=== PATIENT | female | born 1965 | race Caucasian/White ===

== ENCOUNTER 2018-10-29 22:28 | Emergency (ER) | payer OTHER, SELFPAY ==
[2018-10-29] MEDS ORDERED: NA CHLORIDE 0.9% 1,000 ML ONE (23:28)
[2018-10-29 23:29] LABS: Absolute Lymphocytes (CBC) 3.3 K/uL (0.7-4.9); Basophils % 0.2 % (0-1.3); Hematocrit 38.8 % (36.0-45.0); Lymphocytes % 22.1 % (15.3-44.8); MPV 8.6 fL (7.6-11.3); RBC Red Blood Cell Count 4.27 M/uL (3.86-4.86)
[2018-10-29 23:32] LABS: Protime INR 1.12
[2018-10-30 00:07] LABS: ALT/SGPT 16 U/L (12-78); AST/SGOT 9 U/L (15-37); Alkaline Phosphatase 66 U/L (45-117); BUN Blood Urea Nitrogen 19 mg/dL (7-18); Bicarbonate 26 mmol/L (21-32); Bilirubin Direct 0.2 mg/dL (0-0.2); Bilirubin Total 0.9 mg/dL (0.2-1.0); Glucose Level 143 mg/dL (74-106); Potassium 3.3 mmol/L (3.5-5.1); Protein, Total 7.6 g/dL (6.4-8.2); Sodium Level 141 mmol/L (136-145)
[2018-10-30 00:35] LABS: Urine Blood NEGATIVE (NEG); Urine Glucose NEGATIVE (NEG); Urine Protein 1+ (NEG); Urine Specific Gravity >1.030 (1.005-1.030)
[2018-10-30 00:59] LABS: Barbiturates NEGATIVE (NEGATIVE); Benzodiazepines NEGATIVE (NEGATIVE); Cocaine NEGATIVE (NEGATIVE); METHAMPHETAM NEGATIVE (NEGATIVE); Methadone NEGATIVE (NEGATIVE); Opiates POSITIVE (NEGATIVE); Phencyclidine NEGATIVE (NEGATIVE); THC Cannibis POSITIVE (NEGATIVE)
--- NOTE | 2018-10-30 01:31 | EDPHYS ---
Physician Documentation [facility] Name: Mirta Olmos Age: 53 yrs Sex: Female : 1965 Arrival Date: 10/29/2018 Time: 22:30 Bed 15 Private MD: ED Physician Kashmir Mosqueda HPI: 10/30 03:49 This 53 yrs old Female presents to ER via Wheelchair with complaints of kdr Numbness Of Arm - L, Passed Out Prior To Arrival. 03:50 The patient has experienced syncope, became unresponsive, collapsed, lost kdr consciousness. Onset: The symptoms/episode began/occurred acutely, suddenly, just prior to arrival. Duration: This was a single episode, that lasted an unknown period of time. Context: the episode(s) was witnessed, by a bystander, occurred [employer], occurred while the patient was standing, Just prior to the episode the patient experienced lightheadedness, tingling, weakness, States that she had been feeling poorly today and so she smoke some marijuana which may have been tainted with unknown substance. She has previously smoked marijuana without problem but immediately after smoking this time she became light headed and passed out hitting her head on the way down to the floor. Associated injury: Head/face: left side of the back of head and left occipital area, contusion. Associated signs and symptoms: The patient has no apparent associated signs or symptoms. Current symptoms: Currently, the patient is not experiencing any symptoms, the patient feels back to baseline. The patient has not experienced similar symptoms in the past. The patient has not recently seen a physician. Historical: - Allergies: 10/29 22:35 No Known Allergies; jb4 - Home Meds: 22:35 Soma Oral [Active]; Hydrocodone-Acetaminophen Oral [Active]; Fentanyl Patch Topical jb4 [Active]; Lisinopril Oral [Active]; gabapentin oral oral [Active]; - PMHx: 22:35 Hypertension; jb4 - PSHx: 22:35 ; jb4 - Immunization history:: Adult Immunizations up to date. - Social history:: Smoking status: Patient uses tobacco products, smokes one pack cigarettes per day. Patient/guardian denies using alcohol. - Ebola Screening: : No symptoms or risks identified at this time. ROS: 10/30 03:50 Constitutional: Negative for fever, chills, and weight loss, Eyes: Negative for injury, kdr pain, redness, and discharge, ENT: Negative for injury, pain, and discharge, Neck: Negative for injury, pain, and swelling, Cardiovascular: Negative for chest pain, palpitations, and edema, Respiratory: Negative for shortness of breath, cough, wheezing, and pleuritic chest pain, Abdomen/GI: Negative for abdominal pain, nausea, vomiting, diarrhea, and constipation, Back: Negative for injury and pain, : Negative for injury, bleeding, discharge, and swelling, MS/Extremity: Negative for injury and deformity, Skin: Negative for injury, rash, and discoloration, Psych: Negative for depression, anxiety, suicide ideation, homicidal ideation, and hallucinations, Allergy/Immunology: Negative for hives, rash, and allergies, Endocrine: Negative for neck swelling, polydipsia, polyuria, polyphagia, and marked weight changes, Hematologic/Lymphatic: Negative for swollen nodes, abnormal bleeding, and unusual bruising. Neuro: Positive for loss of consciousness, syncope, weakness, Negative for altered mental status, dizziness, gait disturbance, hearing loss, numbness, seizure activity, speech changes, tingling, tinnitus, tremor, visual changes. Exam: 03:50 Constitutional: This is a well developed, well nourished patient who is awake, alert, kdr and in no acute distress. Head/Face: Normocephalic, atraumatic. Eyes: Pupils equal round and reactive to light, extra-ocular motions intact. Lids and lashes normal. Conjunctiva and sclera are non-icteric and not injected. Cornea within normal limits. Periorbital areas with no swelling, redness, or edema. Neck: Trachea midline, no thyromegaly or masses palpated, and no cervical lymphadenopathy. Supple, full range of motion without nuchal rigidity, or vertebral point tenderness. No Meningismus. Chest/axilla: Normal chest wall appearance and motion. Nontender with no deformity. No lesions are appreciated. Cardiovascular: Regular rate and rhythm with a normal S1 and S2. No gallops, murmurs, or rubs. Normal PMI, no JVD. No pulse deficits. Respiratory: Lungs have equal breath sounds bilaterally, clear to auscultation and percussion. No rales, rhonchi or wheezes noted. No increased work of breathing, no retractions or nasal flaring. Abdomen/GI: Soft, non-tender, with normal bowel sounds. No distension or tympany. No guarding or rebound. No evidence of tenderness throughout. Back: No spinal tenderness. No costovertebral tenderness. Full range of motion. Skin: Warm, dry with normal turgor. Normal color with no rashes, no lesions, and no evidence of cellulitis. MS/ Extremity: Pulses equal, no cyanosis. Neurovascular intact. Full, normal range of motion. Neuro: Awake and alert, GCS 15, oriented to person, place, time, and situation. Cranial nerves II-XII grossly intact. Motor strength 5/5 in all extremities. Sensory grossly intact. Cerebellar exam normal. Normal gait. Psych: Awake, alert, with orientation to person, place and time. Behavior, mood, and affect are within normal limits. Vital Signs: 10/29 22:35 BP 90 / 67; Pulse 59; Resp 16; Temp 97.6; Pulse Ox 100% on R/A; Weight 111.58 kg (R); jb4 Height 6 ft. 0 in. (182.88 cm) (R); Pain 6/10; 23:00 BP 84 / 45; Pulse 51; Resp 16; Pulse Ox 100% on R/A; jb4 23:17 BP 90 / 49; Pulse 51; Resp 18; Pulse Ox 100% on R/A; jb4 23:30 BP 100 / 50; Pulse 52; Resp 16; Pulse Ox 100% on R/A; jb4 10/30 00:00 BP 90 / 65; Pulse 55; Resp 16; Pulse Ox 100% on R/A; jb4 00:45 BP 97 / 52; Pulse 61; Resp 16; Pulse Ox 100% on R/A; jb4 01:41 BP 99 / 57; Pulse 58; Resp 16; Pulse Ox 100% on R/A; jb4 02:05 BP 105 / 62; Pulse 61; Resp 16; Pulse Ox 100% on R/A; jb4 10/29 22:35 Body Mass Index 33.36 (111.58 kg, 182.88 cm) jb4 10/29 23:00 Provider [facility] of low b[facility] MDM: 10/30 01:30 Patient medically screened. kdr 03:50 Data reviewed: vital signs, nurses notes, lab test result(s), radiologic studies. kdr Counseling: I had a detailed discussion with the patient and/or guardian regarding: the historical points, exam findings, and any diagnostic results supporting the discharge/admit diagnosis, lab results, radiology results, the need for outpatient follow up. 10/29 22:47 Order name: Acetaminophen kdr 10/29 22:47 Order name: Basic Metabolic Panel kdr 10/29 22:47 Order name: CBC with Diff; Complete Time: [facility] 10/29 22:47 Order name: ETOH Level; Complete Time: [facility] 10/29 22:47 Order name: Hepatic Function; Complete Time: [facility] 10/29 22:47 Order name: PT-INR; Complete Time: [facility] 10/29 21:47 Order name: Ptt, Activated; Complete Time: [facility] 10/29 22:47 Order name: Salicylate; Complete Time: [facility] 10/29 22:47 Order name: Urine Drug Screen; Complete Time: [facility] 10/29 22:47 Order name: CT Head C Spine kdr 10/29 22:59 Order name: Acetaminophen Level; Complete Time: [facility] 10/29 22:59 Order name: Basic Metabolic Panel; Complete Time: [facility] 10/29 23:53 Order name: Urine Dipstick--Ancillary (enter results); Complete Time: [facility] 10/29 23:53 Order name: Urine --Ancillary (enter results); Complete Time: [facility] 10/29 22:47 Order name: EKG; Complete Time: 23:00 [facility] 10/29 22:47 Order name: EKG - Nurse/Tech; Complete Time: 22:55 [facility] 10/29 22:47 Order name: IV Saline Lock; Complete Time: 22:55 [facility] 10/29 22:47 Order name: Labs collected and sent; Complete Time: 22:55 [facility] 10/29 22:47 Order name: Urine Dipstick-Ancillary (obtain specimen); Complete Time: 23:43 kdr Administered Medications: 10/29 23:32 Drug: NS 0.9% 1000 ml Route: IV; Rate: 1 bolus; Site: right antecubital; jb4 10/30 01:30 Follow up: Response: No adverse reaction; Blood pressure is elevated; IV Status: jb4 Completed infusion; IV Intake: 1000ml Point of Care Testing: Blood Glucose: 10/29 22:35 Blood Glucose: 158 mg/dL; jb4 Ranges: Critical Glucose Levels:Adult <50 mg/dl or >400 mg/dl <40 mg/dl or >180 mg/dl Disposition: 10/30/18 01:30 Discharged to Home. Impression: Syncope and collapse, Superficial injury of head, Substance abuse. - Condition is Stable. - Discharge Instructions: Syncope, [id number], Head Injury, Adult, [id number]. - Medication Reconciliation Form, Thank You Letter form. - Follow up: Private Physician; When: 2 - 3 days; Reason: If symptoms return, Further diagnostic work-up, Recheck today's complaints, Continuance of care, Re-evaluation by your physician. - Problem is new. - Symptoms are resolved. Signatures: Dispatcher [employer] EDMS Kashmir Mosqueda MD MD kdr Hussein Norwood RN RN jb4 Corrections: (The following items were deleted from the chart) 10/30 02:08 01:30 10/30/2018 01:30 Discharged to Home. Impression: Syncope and collapse; jb4 Superficial injury of head; Substance abuse. Condition is Stable. Forms are Medication Reconciliation Form, Thank You Letter, Antibiotic Education, Prescription Opioid Use. Follow up: Private Physician; When: 2 - 3 days; Reason: If symptoms return, Further diagnostic work-up, Recheck today's complaints, Continuance of care, Re-evaluation by your physician. Problem is new. Symptoms are resolved. kdr
--- NOTE | 2018-10-30 01:31 | ER ---
Nurse's Notes [facility] Name: Mirta Olmos Age: 53 yrs Sex: Female : 1965 Arrival Date: 10/29/2018 Time: 22:30 Bed 15 Private MD: Diagnosis: Syncope and collapse;Superficial injury of head;Substance abuse Presentation: 10/29 22:35 Presenting complaint: Patient states: I was at work and noticed my left arm and leg jb4 were going numb, I passed out and hit my head on a sound mixer. 22:35 Transition of care: patient was not received from another setting of care. Onset of jb4 symptoms was October 29, 2018. Risk Assessment: Do you want to hurt yourself or someone else? Patient reports no desire to harm self or others. Initial Sepsis Screen: Does the patient meet any 2 criteria? No. Patient's initial sepsis screen is negative. Does the patient have a suspected source of infection? No. Patient's initial sepsis screen is negative. Care prior to arrival: None. 22:35 Method Of Arrival: Wheelchair jb4 22:35 Acuity: LESTER 2 jb4 Historical: - Allergies: 22:35 No Known Allergies; jb4 - Home Meds: 22:35 Soma Oral [Active]; Hydrocodone-Acetaminophen Oral [Active]; Fentanyl Patch Topical jb4 [Active]; Lisinopril Oral [Active]; gabapentin oral oral [Active]; - PMHx: 22:35 Hypertension; jb4 - PSHx: 22:35 ; jb4 - Immunization history:: Adult Immunizations up to date. - Social history:: Smoking status: Patient uses tobacco products, smokes one pack cigarettes per day. Patient/guardian denies using alcohol. - Ebola Screening: : No symptoms or risks identified at this time. Screenin:35 Abuse screen: Denies threats or abuse. Nutritional screening: No deficits noted. jb4 Tuberculosis screening: No symptoms or risk factors identified. Fall Risk Fall in past 12 months (25 points). IV access (20 points). Ambulatory Aid- None/Bed Rest/Nurse Assist (0 pts). Gait- Normal/Bed Rest/Wheelchair (0 pts) Total Christie Fall Scale indicates High Risk Score (45 or more points). Fall prevention measures have been instituted. Side Rails Up X 2 Placed Close to Nursing Station Frequent Obs/Assessments Occuring Family Present and informed to notify staff if the need to leave the bedside As available patient and family educated on Fall Prevention Program and Strategies. Assessment: 22:35 General: Appears distressed, uncomfortable, Behavior is anxious. Pain: Complains of jb4 pain in scalp Pain does not radiate. Pain currently is 6 out of 10 on a pain scale. Neuro: Level of Consciousness is awake, alert, obeys commands, Oriented to person, place, time, situation, [place] Supervisor are equal bilaterally Moves all extremities. Gait is steady, Speech is slurred, Facial symmetry appears normal, Pupils are PERRLA, Intact. Cardiovascular: Patient's skin is warm and dry. Respiratory: Reports shortness of breath Airway is patent Respiratory effort is even, unlabored, Respiratory pattern is regular, symmetrical. GI: No deficits noted. No signs and/or symptoms were reported involving the gastrointestinal system. : No deficits noted. No signs and/or symptoms were reported regarding the genitourinary system. EENT: No deficits noted. No signs and/or symptoms were reported regarding the EENT system. Derm: Skin is intact, Skin is pink, warm \T\ dry. Musculoskeletal: Circulation, motion, and sensation intact. Range of motion: intact in all extremities. 22:35 Reassessment: Provider notified of low b/p. jb4 23:30 Reassessment: Patient appears in no apparent distress at this time. Patient and/or jb4 family updated on plan of care and expected duration. Pain level reassessed. Patient is alert, oriented x 3, equal unlabored respirations, skin warm/dry/pink. 10/30 00:15 Reassessment: Patient appears in no apparent distress at this time. Patient and/or jb4 family updated on plan of care and expected duration. Pain level reassessed. Patient is alert, oriented x 3, equal unlabored respirations, skin warm/dry/pink. Pt to CT. 00:51 Reassessment: Patient appears in no apparent distress at this time. Patient and/or jb4 family updated on plan of care and expected duration. Pain level reassessed. Patient is alert, oriented x 3, equal unlabored respirations, skin warm/dry/pink. PT is back from CT. 01:41 Reassessment: Patient appears in no apparent distress at this time. Patient and/or jb4 family updated on plan of care and expected duration. Pain level reassessed. Patient is alert, oriented x 3, equal unlabored respirations, skin warm/dry/pink. 02:05 Reassessment: Patient appears in no apparent distress at this time. Patient and/or jb4 family updated on plan of care and expected duration. Pain level reassessed. Patient is alert, oriented x 3, equal unlabored respirations, skin warm/dry/pink. Pt and verbalized understanding of d/c and follow up instructions. Vital Signs: 10/29 22:35 BP 90 / 67; Pulse 59; Resp 16; Temp 97.6; Pulse Ox 100% on R/A; Weight 111.58 kg (R); jb4 Height 6 ft. 0 in. (182.88 cm) (R); Pain 6/10; 23:00 BP 84 / 45; Pulse 51; Resp 16; Pulse Ox 100% on R/A; jb4 23:17 BP 90 / 49; Pulse 51; Resp 18; Pulse Ox 100% on R/A; jb4 23:30 BP 100 / 50; Pulse 52; Resp 16; Pulse Ox 100% on R/A; jb4 10/30 00:00 BP 90 / 65; Pulse 55; Resp 16; Pulse Ox 100% on R/A; jb4 00:45 BP 97 / 52; Pulse 61; Resp 16; Pulse Ox 100% on R/A; jb4 01:41 BP 99 / 57; Pulse 58; Resp 16; Pulse Ox 100% on R/A; jb4 02:05 BP 105 / 62; Pulse 61; Resp 16; Pulse Ox 100% on R/A; jb4 10/29 22:35 Body Mass Index 33.36 (111.58 kg, 182.88 cm) jb4 10/29 23:00 Provider notified of low b/p jb4 ED Course: 22:30 Patient arrived in ED. ds1 22:35 Arm band placed on. EKG completed in triage. Results shown to . jb4 22:43 Hussein Norwood, RN is Primary Nurse. jb4 22:46 Kashmir Mosqueda MD is Attending Physician. kdr 22:50 Initial lab(s) drawn, by me, sent to lab. Inserted saline lock: 20 gauge in right jb4 antecubital area, using aseptic technique. Blood collected. 22:55 Triage completed. jb4 10/30 00:45 Patient has correct armband on for positive identification. Bed in low position. Call jb4 light in reach. Side rails up X 1. Pulse ox on. NIBP on. 00:52 CT Head C Spine In Process Unspecified. EDMS 02:05 No provider procedures requiring assistance completed. IV discontinued, intact, jb4 bleeding controlled, No redness/swelling at site. Pressure dressing applied. Administered Medications: 10/29 23:32 Drug: NS 0.9% 1000 ml Route: IV; Rate: 1 bolus; Site: right antecubital; jb4 10/30 01:30 Follow up: Response: No adverse reaction; Blood pressure is elevated; IV Status: jb4 Completed infusion; IV Intake: 1000ml Point of Care Testing: Blood Glucose: 10/29 22:35 Blood Glucose: 158 mg/dL; jb4 Ranges: Intake: 10/30 01:30 IV: 1000ml; Total: 1000ml. jb4 Outcome: 01:30 Discharge ordered by . kdr 02:05 Discharged to home via wheelchair, with family. jb4 02:05 Condition: stable 02:05 Discharge instructions given to patient, family, Instructed on discharge instructions, follow up and referral plans. Demonstrated understanding of instructions, follow-up care. 02:08 Patient left the ED. jb4 Signatures: Dispatcher [employer] EDKashmir Stewart MD MD kdr [place], Demi ds1 Hussein Norwood, RN RN jb4
--- NOTE | 2018-10-30 07:13 | EKG ---
Test Date: 2018-10-29 Test Time: 22:52:26 Rn Surgery: AER MEASUREMENT RESULTS: Intervals: Rate: 55 ND: 152 QRSD: 98 QT: 440 QTc: 420 [place]: P: 37 ND: 152 QRS: 74 T: 50 INTERPRETIVE STATEMENTS: Sinus bradycardia Incomplete right bundle branch block Borderline ECG No previous ECG available for comparison Electronically Signed On 10-30-18 07:13:10 CDT by Juan Hollis
--- NOTE | 2018-10-30 10:01 | RAD REPORT ---
EXAM DESCRIPTION: CT - Head C Spine Mpr Wo Con - 10/30/2018 2:04 am CLINICAL HISTORY: 53 years Female fall, head injury; Pain TECHNIQUE: Contiguous axial CT images obtained through the brain and cervical spine without IV contr ast. Coronal and sagittal reformatted images also provided. This CT exam was performed according to our departmental dose-optimization program, which includes on e or more of the following dose reduction techniques: automated exposure control, adjustment of the m A and/or kV according to patient size, and/or use of iterative reconstruction technique. COMPARISON: No prior exams provided for comparison. FINDINGS: There is no acute skull fracture, intracranial hemorrhage, extraaxial collection, or acute transcortical infarction. The ventricles are normal in size and contour without mass effect or midli ne shift. The visualized paranasal sinuses, tympanomastoid cavities, and orbits are normal. There is no acute cervical fracture or spondylolisthesis. There is straightening of the normal cervic al lordosis with mild to moderate multilevel degenerative disc disease and uncovertebral arthrosis. N o aggressive osseous lesion. No prevertebral or paraspinal soft tissue swelling. The lung apices are clear. Degenerative changes result in the following: At C3-C4, there is mild bilateral neural foraminal stenosis, right greater than left. At C5-C6, there is flattening of the ventral aspect of the thecal sac with mild left neural foraminal stenosis. At C6-C7, there is moderate narrowing of the left lateral recess with severe left neural foraminal st enosis. At C7-T1, there is minimal left neural foraminal narrowing. IMPRESSION: No acute intracranial or cervical spine injury. Chronic degenerative changes in the cervical spine as described. Electronically signed by: Indigo Morales MD 10/30/2018 1:00 AM CDT Due to temporary technical issues with the PACS/Fluency reporting system, reports are being signed by the in house radiologist as a courtesy to ensure prompt reporting. The interpreting radiologist is f ully responsible for the content of the report.
== END 2018-10-30 02:08 | disposition home or self-care (01) ==
LOC: ER 22:28
DX: R55 Syncope and collapse (principal); S00.90XA Unspecified superficial injury of unspecified part of head, initial encounter; I10 Essential (primary) hypertension; F12.10 Cannabis abuse, uncomplicated; X58.XXXA Exposure to other specified factors, initial encounter; Y93.9 Activity, unspecified; Y92.9 Unspecified place or not applicable
CPT/HCPCS: 36415; 70450; 72125; 80048; 80076; 80307; 80320; 80329; 81003; 81025; 82962; 85025; 85610; 85730; 93005; 96360; 96361; 99284; J7030

== ENCOUNTER 2019-12-29 12:58 | Emergency (ER) | payer OTHER ==
--- OUTSIDE RECORDS SUMMARY | 2019-12-29 13:00 | XMS REPORT | Continuity of Care Document ---
:[address] [facility] t Address [address] [place] [address] Care Team Providers Name Role Phone Doctor Unassigned, Name Attending Clinician Unavailable Jessika Mendoza Attending Clinician Problems This patient has no known problems. Allergies, Adverse Reactions, Alerts This patient has no known allergies or adverse reactions. Medications This patient has no known medications. Procedures This patient has no known procedures. Encounters Start End Encounter Admission Attending Care Care Encounter Source Date/Time Date/Time Type Type Clinicians Facility Department ID 2019-07-20 2019-07-20 Orders Doctor ALFARO [id number] 00:00:00 00:00:00 Only UnassignedROSALIND [id number] [place] [facility] [id number] 2019-06-11 2019-06-11 [facility] ESPINOZA Castillo [id number] 10:21:43 10:36:43 ne Visit [facility] [id number] Surgical [id number] Specialti [id number] [address] 2019-05-11 2019-05-11 Orders Doctor ALFARO [id number] 00:00:00 00:00:00 Only UnassignedROSALIND [id number] [place] [facility] [id number] 2019-05-10 2019-05-10 Office ESPINOZA Castillo [id number] 14:05:26 14:20:26 Visit [facility] [id number] Surgical [id number] Specialti [id number] [address] Results This patient has no known results.
--- NOTE | 2019-12-29 15:09 | RAD REPORT ---
EXAM DESCRIPTION: RAD - Lumbar Spine 3 Views - 12/29/2019 2:59 pm CLINICAL HISTORY: Back pain FINDINGS: Bones are osteoporotic. No fracture or dislocation seen Marked spondylosis involves the lumbar spine
--- NOTE | 2019-12-29 15:10 | RAD REPORT ---
EXAM DESCRIPTION: RAD - Knee Left 3 View - 12/29/2019 2:59 pm CLINICAL HISTORY: Left knee pain status post injury FINDINGS: Bones are osteoporotic. No acute fracture or dislocation noted
--- NOTE | 2019-12-29 15:37 | EDPHYS ---
Physician Documentation [facility] Name: Mirta Olmos Age: 54 yrs Sex: Female : 1965 Arrival Date: 12/29/2019 Time: 13:01 Bed 20 Private MD: ED Physician Keny Cardenas HPI: 12/28 14:20 This 54 yrs old Female presents to ER via Ambulatory with complaints of Fall jmm Injury. 14:20 Details of fall: The patient fell from an upright position, while walking. Onset: The jmm symptoms/episode began/occurred acutely, yesterday. Associated injuries: The patient sustained injury to the low back. This is a 54 year old female with a history of htn that presents to the ED with complaints of low back pain, left knee pain after a fall while walking. Denies head injury. Patient states she slipped on water. . 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 - Social history:: Smoking status: Patient reports the use of cigarette tobacco products, smokes one pack cigarettes per day. ROS: 14:20 Constitutional: Negative for fever, chills, and weight loss, Cardiovascular: Negative jmm for chest pain, palpitations, and edema, Respiratory: Negative for shortness of breath, cough, wheezing, and pleuritic chest pain. 14:20 Back: Positive for pain at rest, pain with movement. 14:20 MS/extremity: Positive for injury or acute deformity, pain. 14:20 All other systems are negative. Exam: 14:20 Constitutional: This is a well developed, well nourished patient who is awake, alert, jmm and in no acute distress. Head/Face: atraumatic. Eyes: EOMI, no conjunctival erythema appreciated ENT: Moist Mucus Membranes Neck: Trachea midline, Supple Chest/axilla: Normal chest wall appearance and motion. Cardiovascular: Regular rate and rhythm. No edema appreciated Respiratory: Normal respirations, no respiratory distress appreciated Abdomen/GI: Non distended, soft 14:20 Back: pain, that is moderate, of the left low back and right low back, ROM is painful, vertebral tenderness, is not appreciated. 14:20 Musculoskeletal/extremity: ROM: intact in all extremities, FROM noted to the left knee, no deformity appreciated, full dorsalis pulse, NVI. 14:20 Skin: Appearance: Color: normal in color. 14:20 Neuro: Orientation: is normal, Mentation: is normal, Memory: is normal. 14:20 Psych: Behavior/mood is pleasant, cooperative. Vital Signs: 13:26 BP 121 / 69; Pulse 74; Resp 16 S; Temp 97(TE); Pulse Ox 98% on R/A; Weight 113.4 kg ca1 (R); Height 6 ft. 0 in. (182.88 cm) (R); Pain 8/10; 15:30 BP 127 / 75; Pulse 75; Resp 16; Temp 97; Pulse Ox 98% ; bp 13:26 Body Mass Index 33.91 (113.40 kg, 182.88 cm) ca1 MDM: 14:08 Patient medically screened. emiliana 15:34 Data reviewed: vital signs, nurses notes. Counseling: I had a detailed discussion with gautam the patient and/or guardian regarding: the historical points, exam findings, and any diagnostic results supporting the discharge/admit diagnosis, radiology results, the need for outpatient follow up, to return to the emergency department if symptoms worsen or persist or if there are any questions or concerns that arise at home. ED course: Patient is alert and non toxic in appearance in the ED. Xray negative. Patient is advised to follow up with pcp and otherwise given strict return precautions. patient understood and agrees with the plan of care. . 12/28 14:19 Order name: Lumbar Spine (3 Views) XRAY; Complete Time: 15:34 [facility] 12/28 14:19 Order name: Knee Left 3 View XRAY; Complete Time: 15:34 [facility] 12/28 15:34 Order name: Rupert wrap-joint; Complete Time: 15:58 [facility] Administered Medications: 15:55 Drug: Ketorolac 30 mg Route: IM; Site: right deltoid; bp 16:04 Follow up: Response: No adverse reaction bp Disposition: 18:19 Co-signature as Attending Physician, Keny Cardenas MD I agree with the assessment and emiliana plan of care. Disposition: 12/29/19 15:36 Discharged to Home. Impression: Contusion of left knee, Strain of muscle, fascia and tendon of lower back. - Condition is Stable. - Discharge Instructions: Back Pain, Adult. - Prescriptions for Medrol (Dao) 4 mg Oral Tablets, Dose Pack - take 1 tablet by ORAL route as directed - follow package instructions; 1 packet. orphenadrine citrate 100 mg Oral Tablet Sustained Release - take 1 tablet by ORAL route 2 times per day As needed; 20 tablet. - Medication Reconciliation Form, Thank You Letter, Antibiotic Education, Prescription Opioid Use form. - Follow up: Private Physician; When: 2 - 3 days; Reason: Recheck today's complaints, Continuance of care, Re-evaluation by your physician. Signatures: Dispatcher [employer] EDKeny Koch MD MD cha Mickail, Joel, PA PA jmm Peltier, Brian, RN RN Linnea Giron RN RN ca1 Corrections: (The following items were deleted from the chart) 16:23 15:36 12/29/2019 15:36 Discharged to Home. Impression: Contusion of left knee; Strain bp of muscle, fascia and tendon of lower back. Condition is Stable. Forms are Medication Reconciliation Form, Thank You Letter, Antibiotic Education, Prescription Opioid Use. Follow up: Private Physician; When: 2 - 3 days; Reason: Recheck today's complaints, Continuance of care, Re-evaluation by your physician. gautam
--- NOTE | 2019-12-29 15:37 | ER ---
Nurse's Notes [facility] Name: Mirta Olmos Age: 54 yrs Sex: Female : 1965 Arrival Date: 12/29/2019 Time: 13:01 Bed 20 Private MD: Diagnosis: Contusion of left knee;Strain of muscle, fascia and tendon of lower back Presentation: 12/28 13:26 Chief complaint: Patient states: Slipped and fell last night. Pain on Lower back and L ca1 knee. Denies LOC. Denies hitting head. Coronavirus screen: Client denies travel out of the [place] in the last 14 days. At this time, the client does not indicate any symptoms associated with coronavirus-19. The client denies any previous COVID testing. Ebola Screen: Patient negative for fever greater than or equal to 101.5 degrees Fahrenheit, and additional compatible Ebola Virus Disease symptoms Patient denies exposure to infectious person. Patient denies travel to an Ebola-affected area in the 21 days before illness onset. No symptoms or risks identified at this time. Initial Sepsis Screen: Does the patient meet any 2 criteria? No. Patient's initial sepsis screen is negative. Does the patient have a suspected source of infection? No. Patient's initial sepsis screen is negative. Risk Assessment: Do you want to hurt yourself or someone else? Patient reports no desire to harm self or others. Onset of symptoms was December 29, 2019. 13:26 Method Of Arrival: Ambulatory ca1 13:26 Acuity: LESTER 4 ca1 Triage Assessment: 13:30 General: Appears in no apparent distress. uncomfortable, obese, Behavior is bp cooperative, appropriate for age, anxious. Pain: Complains of pain in left knee and left low back. EENT: No deficits noted. Neuro: No deficits noted. Cardiovascular: No deficits noted. Respiratory: No deficits noted. GI: No signs and/or symptoms were reported involving the gastrointestinal system. : No signs and/or symptoms were reported regarding the genitourinary system. Derm: No deficits noted. Musculoskeletal: Reports pain in left knee and left low back. [employer]: 13:28 LMP N/A - Post-menopause ca1 Historical: - Allergies: 13:28 No Known Allergies; ca1 - Home Meds: 13:28 lisinopril Oral [Active]; gabapentin Oral [Active]; Methadone Oral [Active]; ca1 - PMHx: 13:28 Hypertension; ca1 - PSHx: 13:28 ; ca1 - Immunization history:: Adult Immunizations up to date. - Social history:: Smoking status: Patient reports the use of cigarette tobacco products, smokes one pack cigarettes per day. Screenin:30 Abuse screen: Denies threats or abuse. Denies injuries from another. Nutritional bp screening: No deficits noted. Tuberculosis screening: No symptoms or risk factors identified. Fall Risk None identified. Assessment: 13:30 General: SEE TRIAGE NOTE. bp 14:30 Reassessment: PT TO XRAY. bp 16:02 Reassessment: PT D/C HOME AMBULATORY, DX WITH KNEE SPRAIN. bp Vital Signs: 13:26 BP 121 / 69; Pulse 74; Resp 16 S; Temp 97(TE); Pulse Ox 98% on R/A; Weight 113.4 kg ca1 (R); Height 6 ft. 0 in. (182.88 cm) (R); Pain 8/10; 15:30 BP 127 / 75; Pulse 75; Resp 16; Temp 97; Pulse Ox 98% ; bp 13:26 Body Mass Index 33.91 (113.40 kg, 182.88 cm) ca1 ED Course: 13:01 Patient arrived in ED. ag5 13:27 Triage completed. ca1 13:28 Arm band placed on right wrist. ca1 13:30 Patient has correct armband on for positive identification. Bed in low position. Call bp light in reach. Side rails up X2. 14:07 Dominik Laura PA is PHCP. [facility] 14:07 Keny Cardenas MD is Attending Physician. [facility] 14:08 Rosalino Sinclair, JENELLE is Primary Nurse. bp 14:59 Lumbar Spine (3 Views) XRAY In Process Unspecified. EDMS 14:59 Knee Left 3 View XRAY In Process Unspecified. EDMS 15:58 Rupert wrap to left knee. 5 16:01 No provider procedures requiring assistance completed. Patient did not have IV access bp during this emergency room visit. Administered Medications: 15:55 Drug: Ketorolac 30 mg Route: IM; Site: right deltoid; bp 16:04 Follow up: Response: No adverse reaction bp Outcome: 15:30 Discharged to home ambulatory. bp 15:30 Condition: stable 15:30 Discharge instructions given to patient, Instructed on discharge instructions, follow up and referral plans. medication usage, Demonstrated understanding of instructions, follow-up care, medications, Prescriptions given X 2. 15:36 Discharge ordered by . gautam 16:23 Patient left the ED. bp Signatures: Dispatcher [employer] EDMS Dominik Laura PA PA jmm Martinez, Maria 5 Rosalino Sinclair RN RN bp Linnea Larkin RN RN [facility] Dianne Maldonado 5 Corrections: (The following items were deleted from the chart) 14:40 14:39 Abuse screen: Denies threats or abuse. Denies injuries from another. bp bp 14:40 14:39 Nutritional screening: No deficits noted. bp bp 14:40 14:39 Tuberculosis screening: No symptoms or risk factors identified. bp bp 14:40 14:39 Fall Risk None identified. bp bp
[2019-12-29] MEDS ORDERED: KETOROLAC 30 MG/ML INJ ONE (16:08)
[2019-12-29 16:35] VITALS: TEMP 97; O2SAT 98
[2019-12-29 16:36] VITALS: BP 127/75
== END 2019-12-29 16:23 | disposition home or self-care (01) ==
LOC: ER 12:58
DX: S39.012A Strain of muscle, fascia and tendon of lower back, initial encounter (principal); S80.02XA Contusion of left knee, initial encounter; W01.0XXA Fall on same level from slipping, tripping and stumbling without subsequent striking against object, initial encounter; Y93.01 Activity, walking, marching and hiking; Y92.9 Unspecified place or not applicable; I10 Essential (primary) hypertension; F17.210 Nicotine dependence, cigarettes, uncomplicated
CPT/HCPCS: 72100; 96372; 99284

== ENCOUNTER 2020-04-06 10:35 | Observation (INO) | payer OTHER ==
--- OUTSIDE RECORDS SUMMARY | 2020-04-06 10:51 | XMS REPORT | Continuity of Care Document ---
:1965 Author Organization [facility] t Address [address] [place] [address] Care Team Providers Name Role Phone Doctor [...] ID 2019-07-20 2019-07-20 Orders Doctor ALFARO [id number] 00:00:00 00:00:00 Only UnassignedROSALIND [id number] [place] [facility] [id number] 2019-06-11 2019-06-11 Telemed[facility] ESPINOZA Castillo [id number] 10:21:43 10:36:43 ne Visit [facility] [id number] Surgical [id number] Specialti [phone] [address] 2019-05-11 2019-05-11 Orders Doctor ALFARO [id number] 00:00:00 00:00:00 Only UnassignedROSALIND [id number] [place] [facility] [id number] 2019-05-10 2019-05-10 Office ESPINOZA Castillo [id number] 14:05:26 14:20:26 Visit [facility] [id number] Surgical [id number] Specialti [phone] [address] Results This patient has no known results.
[2020-04-06 11:07] LABS: Absolute Lymphocytes (CBC) 0.8 K/uL (0.7-4.9); Basophils % 0.2 % (0-1.3); Hematocrit 32.6 % (36.0-45.0); Lymphocytes % 7.1 % (15.3-44.8); MPV 7.8 fL (7.6-11.3); RBC Red Blood Cell Count 3.86 M/uL (3.86-4.86)
[2020-04-06 11:25] LABS: Barbiturates NEGATIVE (NEGATIVE); Benzodiazepines POSITIVE (NEGATIVE); Cocaine NEGATIVE (NEGATIVE); METHAMPHETAM NEGATIVE (NEGATIVE); Methadone POSITIVE (NEGATIVE); Opiates NEGATIVE (NEGATIVE); Phencyclidine NEGATIVE (NEGATIVE); THC Cannibis POSITIVE (NEGATIVE)
[2020-04-06] MEDS ORDERED: NA CHLORIDE 0.9% 1,000 ML ONE (12:08)
[2020-04-06] MEDS ORDERED: ONDANSETRON 4 MG/2 ML VIAL ONE (12:08)
[2020-04-06] MEDS ORDERED: NALOXONE HCL 2 MG/2 ML VIAL ONE (12:20)
[2020-04-06 12:55] LABS: Arterial Blood Carboxyhemoglob 3.2 % (0-1.5); Blood Gas Oxyhemoglobin 85.9 % (94-97); Blood O2 Saturation 89.4 % (92-98.5)
--- NOTE | 2020-04-06 13:11 | RAD REPORT ---
EXAM DESCRIPTION: RAD - Chest Single View - 04/06/2020 12:58 pm CLINICAL HISTORY: SOB Chest pain. COMPARISON: No comparisons FINDINGS: Portable technique limits examination quality. Moderate right-sided pulmonary opacification/ infiltrate is seen most compatible with pneumonia. The heart is normal in size. No displaced fractures.
--- NOTE | 2020-04-06 13:32 | RAD REPORT ---
EXAM DESCRIPTION: CT - Head Brain Wo Cont - 04/06/2020 1:09 pm CLINICAL HISTORY: MENTAL STATUS CHANGE Headache, drowsiness COMPARISON: No comparisons TECHNIQUE: All CT scans are performed using dose optimization technique as appropriate and may inclu de automated exposure control or mA/KV adjustment according to patient size. FINDINGS: No intracranial hemorrhage, hydrocephalus or extra-axial fluid collection.No areas of brai n edema or evidence of midline shift. The paranasal sinuses and mastoids are clear. The calvarium is intact. IMPRESSION: No acute intracranial abnormality.
[2020-04-06 13:45] LABS: White Blood Cell Scan 0 (OK)
[2020-04-06 13:47] LABS: Blood Morphology Comment NOT SEEN (NOT SEEN); Platelet Estimate ADEQ
[2020-04-06 14:44] LABS: Troponin I 0.03 ng/mL (0.0-0.045)
--- NOTE | 2020-04-06 15:22 | ER ---
Nurse's Notes [facility] Name: Mirta Olmos Age: 55 yrs Sex: Female : 1965 Arrival Date: 04/06/2020 Time: 10:38 Bed 19 Private MD: Diagnosis: Pneumonia due to other specified bacteria;Hypoxemia Presentation: 04/06 10:53 Chief complaint: EMS states: pt was found by her this morning, appears to have iw overdosed on xanax, pt admits to taking xanax , has hx of fentanyl use but denies using any last night, pt appears to ave vomited, EMS reports pt was minimally responsive, was 75% on RA on arrival , placed on 4 L NC, up to 90%, pt still very drowsy but awakens to tactile stimuli, pt does not remember when she took the xanax, pt and were supposed to go to methadone clinic this morning. Coronavirus screen: At this time, the client does not indicate any symptoms associated with coronavirus-19. Ebola Screen: Patient negative for fever greater than or equal to 101.5 degrees Fahrenheit, and additional compatible Ebola Virus Disease symptoms Patient denies exposure to infectious person. Patient denies travel to an Ebola-affected area in the 21 days before illness onset. No symptoms or risks identified at this time. Onset of symptoms was April 06, 2020. 10:53 Method Of Arrival: EMS: [facility] iw 10:53 Acuity: LESTER 2 iw 10:54 Initial Sepsis Screen: Does the patient meet any 2 criteria? No. Patient's initial iw sepsis screen is negative. Does the patient have a suspected source of infection? No. Patient's initial sepsis screen is negative. Risk Assessment: Do you want to hurt yourself or someone else? Patient reports no desire to harm self or others. Historical: - Allergies: 11:43 No Known Allergies; iw - Home Meds: 11:43 lisinopril Oral once daily [Active]; iw - PMHx: 11:43 Hypertension; iw - PSHx: 11:43 ; iw Screenin:56 Abuse screen: Denies threats or abuse. Denies injuries from another. Nutritional zb screening: No deficits noted. Tuberculosis screening: No symptoms or risk factors identified. Fall Risk None identified. Assessment: 12:10 Pain: Unable to use pain scale. sr5 12:10 General: Appears uncomfortable, obese, unkempt, Behavior is drowsy. zb 12:10 Neuro: Level of Consciousness is lethargic, Oriented to none Speech is slurred, Pupils zb are sluggish, dilated. Cardiovascular: Heart tones S1 S2 present Capillary refill is > 3 seconds in bilateral fingers Patient's skin is warm and dry. Respiratory: Airway is patent Respiratory effort is labored, Respiratory pattern is snoring irregular Breath sounds with rales bilaterally. GI: Abdomen is round obese. : No signs and/or symptoms were reported regarding the genitourinary system. EENT: No signs and/or symptoms were reported regarding the EENT system. Derm: Skin is flushed. Musculoskeletal: Capillary refill < 3 seconds, Range of motion: intact in all extremities. 12:20 Reassessment: notified ECP of patient condition, notified respiratory. stating at [address] on non-rebreather. 12:30 Reassessment: Reassessment: patient appears more awake, able to open eyes and respond. zb 13:00 Reassessment: Patient appears in no apparent distress at this time. pt remains on zb non-rebreather. eye closed responses to touch. words remained slurred. 14:00 Reassessment: pt remains resting at bedside. responses to touch. still drowsy. zb 16:08 Reassessment: pt standing at bedside , states she needs to use the bathroom, pt iw assisted to bathroom, linens changed, placed back on monitor and O2. 18:59 Reassessment: spoke to patient updated on care. zb 19:42 Reassessment: patient more alert, turned on tv and provided water. patient repositioned zb in bed. 19:51 Reassessment: respiratory at bedside. zb Vital Signs: 11:42 BP 126 / 73; Pulse 89; Resp 16; Temp 98.7; Pulse Ox 98% on 4 lpm NC; iw 12:00 BP 122 / 72; Pulse 92; Resp 22; Pulse Ox 90% 4 lpm ; zb 12:30 BP 126 / 73; Pulse 91; Resp 20; Pulse Ox 98% on 15% Non-rebreather mask; zb 14:46 BP 116 / 66; Pulse 90; Resp 18; Pulse Ox 98% on 13% Non-rebreather mask; zb 15:30 BP 122 / 66; Pulse 91; Resp 20; Pulse Ox 100% on 13% Non-rebreather mask; zb 16:09 Weight 108.86 kg; zb 16:12 BP 109 / 90; Pulse 91; Resp 18; Pulse Ox 91% on 5 lpm NC; zb 17:00 BP 90 / 53; Pulse 91; Resp 22; Temp 99.8; Pulse Ox 92% 4 lpm ; zb 18:00 BP 90 / 57; Pulse 96; Resp 22; Pulse Ox 94% on 2 lpm NC; zb 19:00 BP 116 / 67; Pulse 98; Resp 20; Pulse Ox 93% on 2 lpm NC; zb ED Course: 10:38 Patient arrived in ED. em1 10:44 Eliza Garcia, RN is Primary Nurse. iw 10:59 Triage completed. iw 11:01 Keny Kennedy PA is PHCP. cp 11:02 Kashmir Mosqueda MD is Attending Physician. cp 11:43 Maintain EMS IV. Dressing intact. Good blood return noted. Site clean \T\ dry. Gauge \T\ iw site: 22 L hand. 12:45 Inserted saline lock: 20 gauge in left antecubital area, using aseptic technique. iw 12:58 XRAY Chest (1 view) In Process Unspecified. EDMS 13:07 CT Head Brain wo Cont In Process Unspecified. EDMS 13:57 Arm band placed on right wrist. zb 13:57 Patient has correct armband on for positive identification. zb 15:18 Brian Holman MD is Hospitalizing Provider. cp 04/07 06:40 Primary Nurse role handed off by Eliza Garcia RN eb 07:39 Sherrell Ramos, RN is Primary Nurse. ss 12:04 Primary Nurse role handed off by Sherrell Ramos, JENELLE vg1 12:04 Lorna Guerra, RN is Primary Nurse. vg1 Administered Medications: 04/06 12:03 Drug: Zofran (Ondansetron) 4 mg Route: IVP; Site: left hand; zb 12:04 Drug: NS 0.9% 1000 ml Route: IV; Rate: 1 bolus; Site: left hand; zb 12:11 Not Given (Physician Discretion): NARcan 2 mg IVP once zb 12:11 Drug: NARcan 1 mg Route: IVP; Site: left hand; zb 13:34 Not Given (Physician Discretion): LevaQUIN 750 mg 150 ml IVPB once over 90 mins cp 15:20 Drug: Cefepime 2 grams Route: IVPB; Rate: 200 ml/hr; Infused Over: 30 mins; Site: left zb antecubital; 16:35 Follow up: Response: No adverse reaction; IV Intake: 100ml zb 16:43 Drug: Clindamycin 900 mg Route: IVPB; Infused Over: 30 mins; Site: left hand; zb 17:15 Drug: NS 0.9% (30 ml/kg) 30 ml/kg {Note: discussed limiting to two bolus w/ provider. zb .} Route: IV; Rate: bolus; Site: left hand; 18:26 Drug: Zithromax 500 mg Route: IVPB; Infused Over: 1 hrs; Site: left hand; zb 04/07 01:23 Drug: Tylenol 1000 mg Route: PO; zb 09:38 Follow up: Response: No adverse reaction em Intake: 04/06 16:35 IV: 100ml; Total: 100ml. zb Outcome: 15:20 Decision to Hospitalize by Provider. cp 04/07 13:29 Patient left the ED. iw Signatures: Dispatcher [employer] Tang Gómez RN Eliza Garcia RN RN iw Martinez, Eric em1 Sherrell Ramos RN RN ss Page, Corey, PA PA cp Resecker, Sam RN RN sr5 Marilin Purcell Victoria RN RN cecy1 Jo Hathc RN RN zb Corrections: (The following items were deleted from the chart) 04/06 13:56 12:10 General: Appears uncomfortable, obese, unkempt, Behavior is drowsy, sr5 zb 16:43 15:40 Clindamycin 900 mg IVPB in left hand over 30 mins zb zb 16:43 16:35 Response: No adverse reaction; IV Status: Completed infusion; IV Intake: 100ml zb zb
--- NOTE | 2020-04-06 15:22 | EDPHYS ---
Physician Documentation [facility] Name: Mirta Olmos Age: 55 yrs Sex: Female : 1965 Arrival Date: 04/06/2020 Time: 10:38 Bed 19 Private MD: ED Physician Kashmir Mosqueda HPI: 04/06 10:50 This 55 yrs old Female presents to ER via EMS with complaints of Overdose. cp 10:50 The patient presents to the emergency department with a possible overdose, on Xanax. cp Context: Time: the patient's OD/poisoning occurred at an unknown time, and was witnessed no one, Psychiatric history: it is unknown whether or not the patient has an antecedent psychiatric history. Associated signs and symptoms: Pertinent positives: decreased level of consciousness, nausea, Pertinent negatives: auditory hallucinations, visual hallucinations. Severity of symptoms: in the emergency department the symptoms are unchanged despite home interventions. Historical: - Allergies: 11:43 No Known Allergies; iw - Home Meds: 11:43 lisinopril Oral once daily [Active]; iw - PMHx: 11:43 Hypertension; iw - PSHx: 11:43 ; iw ROS: 10:55 Constitutional: Negative for fever. cp 10:55 Cardiovascular: Negative for chest pain. cp 10:55 Respiratory: Negative for cough, shortness of breath, wheezing. 10:55 Abdomen/GI: Positive for nausea, Negative for abdominal pain, vomiting, diarrhea. 10:55 Neuro: Positive for altered mental status, Negative for headache. 10:55 All other systems are negative. Exam: 11:05 Constitutional: The patient appears in no acute distress, non-diaphoretic, non-toxic, cp well developed, well nourished, obese, unkempt. 11:05 Head/Face: Normocephalic, atraumatic. cp 11:05 Eyes: Periorbital structures: appear normal, Pupils: equal, round, and reactive to light and accomodation, Conjunctiva: normal, no exudate, no injection, Sclera: no appreciated abnormality, Lids and lashes: appear normal, bilaterally. 11:05 ENT: External ear(s): are unremarkable, Nose: is normal, Mouth: Lips: dry, Oral mucosa: moist, Posterior pharynx: Airway: no evidence of obstruction, patent. 11:05 Neck: ROM/movement: is normal, is supple, without pain, no range of motions limitations, no meningismus. 11:05 Chest/axilla: Inspection: normal, Palpation: is normal, no crepitus, no tenderness. 11:05 Cardiovascular: Rate: normal, Rhythm: regular, Edema: is not appreciated, JVD: is not appreciated. 11:05 Respiratory: mild respiratory distress is noted, Respirations: intercostal retractions, are absent, shallow respirations, that is mild, Breath sounds: rhonchi, that are moderate, are heard in the right posterior middle lobe and right posterior lower lobe, stridor, is not appreciated, + upper airway congestion. 11:05 Abdomen/GI: Inspection: abdomen appears normal, Bowel sounds: active, all quadrants, Palpation: abdomen is soft and non-tender, in all quadrants, rebound tenderness, is not appreciated, voluntary guarding, is not appreciated, involuntary guarding, is not appreciated. 11:05 Back: pain, is absent, ROM is normal. 11:05 Skin: cellulitis, is not appreciated, no rash present. 11:05 Neuro: Orientation: to person, Mentation: able to follow commands, slow to respond, sleepy, Motor: moves all fours, general weakness with no focal deficits. 11:11 ECG was reviewed by the Attending Physician. cp Vital Signs: 11:42 BP 126 / 73; Pulse 89; Resp 16; Temp 98.7; Pulse Ox 98% on 4 lpm NC; iw 12:00 BP 122 / 72; Pulse 92; Resp 22; Pulse Ox 90% 4 lpm ; zb 12:30 BP 126 / 73; Pulse 91; Resp 20; Pulse Ox 98% on 15% Non-rebreather mask; zb 14:46 BP 116 / 66; Pulse 90; Resp 18; Pulse Ox 98% on 13% Non-rebreather mask; zb 15:30 BP 122 / 66; Pulse 91; Resp 20; Pulse Ox 100% on 13% Non-rebreather mask; zb 16:09 Weight 108.86 kg; zb 16:12 BP 109 / 90; Pulse 91; Resp 18; Pulse Ox 91% on 5 lpm NC; zb 17:00 BP 90 / 53; Pulse 91; Resp 22; Temp 99.8; Pulse Ox 92% 4 lpm ; zb 18:00 BP 90 / 57; Pulse 96; Resp 22; Pulse Ox 94% on 2 lpm NC; zb 19:00 BP 116 / 67; Pulse 98; Resp 20; Pulse Ox 93% on 2 lpm NC; zb MDM: 11:00 Differential diagnosis: polypharmacy, over medication, hypoglycemia, closed head cp injury, intracranial hemorrhage. 11:15 Patient medically screened. 15:15 Data reviewed: vital signs, nurses notes, lab test result(s), EKG, radiologic studies, cp CT scan, plain films. 15:15 Test interpretation: by ED physician or midlevel provider: ECG, plain radiologic cp studies. Response to treatment: the patient's symptoms have markedly improved after treatment, and as a result, I will admit patient. Physician consultation: Brian Holman MD was contacted at 15:00, regarding admission, to the medical/surgical unit. patient's condition, would like medications started, Clindamycin. 04/06 10:44 Order name: Acetaminophen 04/06 10:44 Order name: Basic Metabolic Panel 04/06 10:44 Order name: CBC with Diff; Complete Time: 15:14 04/06 13:29 Interpretation: Normal except: WBC 11.40; HGB 10.4; HCT 32.6; MCV 84.4; MCH 26.9; MCHC cp 31.9; RDW 16.5; KILEY% 88.1; LYM% 7.1; NEUT A 10.0. 04/06 10:44 Order name: ETOH Level; Complete Time: 12:40 04/06 10:44 Order name: Hepatic Function 04/06 10:44 Order name: PT-INR; Complete Time: 20:05 04/06 10:44 Order name: Ptt, Activated; Complete Time: 20:06 04/06 10:44 Order name: Salicylate; Complete Time: 12:40 04/06 10:44 Order name: Urine Drug Screen; Complete Time: 12:40 04/06 12:40 Interpretation: Normal except: BZO POSITIVE; THC POSITIVE; METH POSITIVE. 04/06 10:45 Order name: Acetaminophen Level; Complete Time: 20:06 EDSC 04/06 10:45 Order name: Basic Metabolic Panel; Complete Time: 20:06 EDSC 04/06 10:45 Order name: Liver (Hepatic) Function; Complete Time: 20:06 [facility] 04/06 11:19 Order name: CBC Smear Scan; Complete Time: 15:14 [facility] 04/06 12:55 Order name: ABG Arterial Blood Gas; Complete Time: 13:29 [facility] 04/06 13:29 Order name: Blood Culture Adult (2) 04/06 13:29 Order name: Lactate; Complete Time: 15:14 04/06 13:29 Order name: Procalcitonin; Complete Time: 20:06 04/06 13:30 Order name: Troponin I; Complete Time: 15:14 04/06 13:30 Order name: BNP; Complete Time: 15:14 04/06 16:08 Order name: COVID-19/FLU A+B; Complete Time: 20:06 [facility] 04/06 17:25 Order name: CBC with Automated Diff [facility] 04/06 17:25 Order name: CBC with Automated Diff; Complete Time: 05:43 [facility] 04/06 17:25 Order name: Comprehensive Metabolic Panel [facility] 04/06 17:25 Order name: Comprehensive Metabolic Panel [facility] 04/06 17:25 Order name: Lactate [facility] 04/06 17:25 Order name: Lactate; Complete Time: 05:43 [facility] 04/06 17:25 Order name: Lipid Profile [facility] 04/06 10:44 Order name: EKG; Complete Time: 10:45 04/06 10:44 Order name: EKG - Nurse/Tech; Complete Time: 12:18 04/06 10:44 Order name: IV Saline Lock; Complete Time: 14:43 04/06 10:44 Order name: Labs collected and sent; Complete Time: 14:43 04/06 10:44 Order name: Urine Dipstick-Ancillary (obtain specimen); Complete Time: 18:19 04/06 12:46 Order name: XRAY Chest (1 view); Complete Time: 13:29 04/06 12:46 Order name: CT Head Brain wo Cont; Complete Time: 13:34 04/06 17:25 Order name: Heart Healthy [facility] 04/06 17:25 Order name: Lipid Profile [facility] 04/06 17:25 Order name: Magnesium [facility] 04/06 17:25 Order name: Magnesium [facility] 04/06 17:25 Order name: NT PRO-BNP EDMS 04/06 17:25 Order name: NT PRO-BNP EDMS 04/06 17:25 Order name: Phosphorus EDMS 04/06 17:25 Order name: Phosphorus EDMS 04/06 17:52 Order name: Lactate Sepsis 2 HR Follow-up; Complete Time: 20:06 EDMS 04/07 09:37 Order name: RAD EDMS EC:11 Rate is 90 beats/min. Rhythm is regular. UT interval is normal. QRS interval is normal. cp QT interval is normal. T waves are Inverted in lead aVR. Interpreted by me. Reviewed by me. Administered Medications: 12:03 Drug: Zofran (Ondansetron) 4 mg Route: IVP; Site: left hand; zb 12:04 Drug: NS 0.9% 1000 ml Route: IV; Rate: 1 bolus; Site: left hand; zb 12:11 Not Given (Physician Discretion): NARcan 2 mg IVP once zb 12:11 Drug: NARcan 1 mg Route: IVP; Site: left hand; zb 13:34 Not Given (Physician Discretion): LevaQUIN 750 mg 150 ml IVPB once over 90 mins cp 15:20 Drug: Cefepime 2 grams Route: IVPB; Rate: 200 ml/hr; Infused Over: 30 mins; Site: left zb antecubital; 16:35 Follow up: Response: No adverse reaction; IV Intake: 100ml zb 16:43 Drug: Clindamycin 900 mg Route: IVPB; Infused Over: 30 mins; Site: left hand; zb 17:15 Drug: NS 0.9% (30 ml/kg) 30 ml/kg {Note: discussed limiting to two bolus w/ provider. zb .} Route: IV; Rate: bolus; Site: left hand; 18:26 Drug: Zithromax 500 mg Route: IVPB; Infused Over: 1 hrs; Site: left hand; zb 04/07 01:23 Drug: Tylenol 1000 mg Route: PO; zb 09:38 Follow up: Response: No adverse reaction em Disposition: 04/06 16:00 Chart complete. cp 04/07 07:03 Co-signature as Attending Physician, Kashmir Mosqueda MD I agree with the assessment and kdr plan of care. Disposition: 04/06/20 15:20 Hospitalization ordered by Brian Holman for Inpatient Admission. Preliminary diagnosis are Pneumonia due to other specified bacteria, Hypoxemia. - Bed requested for [facility] ER HOLD. - Status is Inpatient Admission. iw - Condition is Fair. - Problem is new. - Symptoms have improved. Signatures: Dispatcher [employer] EDSC Ofelia Szymanski RN RN dw Kashmir Mosqueda MD MD [facility] Eliza Garcia RN RN iw Benji Borden MD MD rn Roszak, Josh, PA PA [id number] Page, Corey, PA PA cp Brown, Zipporah, RN RN zb Munoz, Edgar RN em Corrections: (The following items were deleted from the chart) 04/06 15:14 13:30 Influenza Screen (A \T\ B)+BA.LAB.BRZ ordered. EDSC EDSC 15:14 13:30 Influenza Screen (A ordered. [facility] EDSC 19:51 15:20 Hospitalization Ordered by Brian Holman MD for Inpatient Admission. Preliminary dw diagnosis is Pneumonia due to other specified bacteria; Hypoxemia. Bed requested for Telemetry/MedSurg (Inpatient). Status is Inpatient Admission. Condition is Fair. Problem is new. Symptoms have improved. cp 04/07 13:29 04/06 19:51 04/06/2020 15:20 Hospitalization Ordered by Brian Hloman MD for Inpatient iw Admission. Preliminary diagnosis is Pneumonia due to other specified bacteria; Hypoxemia. Bed requested for [facility] ER HOLD. Status is Inpatient Admission. Condition is Fair. Problem is new. Symptoms have improved. dw
[2020-04-06] MEDS ORDERED: Levofloxacin 750mg IV 0 MG/0 ML BAG IV ONE (15:24)
[2020-04-06] MEDS ORDERED: CEFEPIME 2 GM VIAL ONE (15:24)
[2020-04-06] MEDS ORDERED: NA CHLORIDE 0.9% 100 ML ONE (15:24)
[2020-04-06 16:07] LABS: SARS-COV-2 RT PCR NEGATIVE (NEGATIVE)
[2020-04-06 16:13] LABS: ALT/SGPT 27 U/L (12-78); AST/SGOT 18 U/L (15-37); Albumin 3.2 g/dL (3.4-5.0); Alkaline Phosphatase 79 U/L (45-117); BUN Blood Urea Nitrogen 16 mg/dL (7-18); Bicarbonate 29 mmol/L (21-32); Bilirubin Direct 0.2 mg/dL (0-0.2); Bilirubin Total 0.6 mg/dL (0.2-1.0); Glucose Level 132 mg/dL (74-106); Potassium 4.4 mmol/L (3.5-5.1); Protein, Total 7.6 g/dL (6.4-8.2); Sodium Level 142 mmol/L (136-145)
[2020-04-06] MEDS ORDERED: CLINDAMYCIN 900MG/D5W 900 MG/50 ML IVPB IV ONE (16:54)
[2020-04-06 17:10] LABS: Protime INR 1.07
[2020-04-06] MEDS ORDERED: NA CHLORIDE 0.9% 2,000 ML ONE (17:10)
[2020-04-06] MEDS ORDERED: AZITHROMYCIN 500 MG/250 ML BAG IV SCH (17:15)
[2020-04-06] MEDS ORDERED: ACETAMINOPHEN 500 MG TAB PO PRN (17:16)
[2020-04-06] MEDS ORDERED: ONDANSETRON 4 MG/2 ML VIAL IV PRN (17:16)
[2020-04-06] MEDS ORDERED: ALBUTEROL 2.5 MG/3 ML NEB SOL NEB PRN (17:16)
[2020-04-06] MEDS: NA CHLORIDE 0.9% 1,000 ML IV SCH (18:00)
[2020-04-06] MEDS: METHYLPREDNISOLONE 125 MG INJ IV SCH (18:00)
[2020-04-06] MEDS ORDERED: IPRATROPIUM BROM 0.5MG/2.5ML ONE (19:47)
[2020-04-06] MEDS: IPRATROPIUM BROM 0.5MG/2.5ML NEB SCH (19:48)
[2020-04-06] MEDS: ALBUTEROL 2.5 MG/3 ML NEB SOL NEB SCH (19:48)
[2020-04-06] MEDS ORDERED: ALBUTEROL 2.5 MG/3 ML NEB SOL ONE (21:24)
[2020-04-07] MEDS ORDERED: NA CHLORIDE 0.9% 1,000 ML ONE (00:34)
[2020-04-07] MEDS ORDERED: METHYLPREDNISOLONE 40 MG INJ ONE (00:34)
[2020-04-07] MEDS: IPRATROPIUM BROM 0.5MG/2.5ML NEB SCH ×2 (00:55→08:45)
[2020-04-07] MEDS: ALBUTEROL 2.5 MG/3 ML NEB SOL NEB SCH ×2 (00:55→08:45)
[2020-04-07] MEDS ORDERED: IPRATROPIUM BROM 0.5MG/2.5ML ONE ×3 (01:07→14:24)
[2020-04-07 01:14] VITALS: BMI 32.5
[2020-04-07] MEDS ORDERED: ACETAMINOPHEN 500 MG TAB ONE (01:25)
[2020-04-07] MEDS: CLINDAMYCIN INJ 900 MG in NA CHLORIDE 0.9% 50 ML IV SCH ×2 (02:15→09:45)
[2020-04-07] MEDS: NA CHLORIDE 0.9% 1,000 ML IV SCH (04:00)
[2020-04-07 05:28] LABS: Absolute Lymphocytes (CBC) 0.4 K/uL (0.7-4.9); Basophils % 0.1 % (0-1.3); Hematocrit 26.2 % (36.0-45.0); Lymphocytes % 4.7 % (15.3-44.8); MPV 7.6 fL (7.6-11.3); RBC Red Blood Cell Count 3.12 M/uL (3.86-4.86)
[2020-04-07 05:53] LABS: Albumin 2.6 g/dL (3.4-5.0); Bilirubin Total 0.6 mg/dL (0.2-1.0); Magnesium 2.1 mg/dL (1.8-2.4); Phosphorus 2.5 mg/dL (2.5-4.9); Potassium 4.4 mmol/L (3.5-5.1); Protein, Total 6.3 g/dL (6.4-8.2)
--- NOTE | 2020-04-07 07:52 | EKG ---
Test Date: 2020-04-06 Test Time: 11:05:49 Government Relations Analyst: FARHAN MEASUREMENT RESULTS: Intervals: Rate: 90 PA: 166 QRSD: 94 QT: 354 QTc: 433 [place]: P: 65 PA: 166 QRS: 81 T: 55 INTERPRETIVE STATEMENTS: Normal sinus rhythm Incomplete right bundle branch block Borderline ECG Compared to ECG 10/29/2018 22:52:26 Sinus bradycardia no longer present Electronically Signed On 04-07-20 07:49:39 RN PRIVATE DUTY by Juan Hollis
[2020-04-07] MEDS ORDERED: ALBUTEROL 2.5 MG/3 ML NEB SOL ONE ×2 (08:27→14:25)
[2020-04-07] MEDS ORDERED: ENOXAPARIN 40 MG/0.4 ML SQ SCH (09:00)
[2020-04-07] MEDS: METHYLPREDNISOLONE 125 MG INJ IV SCH ×2 (09:30)
--- NOTE | 2020-04-07 09:36 | RAD REPORT ---
EXAM DESCRIPTION: [place] Single View04/07/2020 9:31 am CLINICAL HISTORY: Chest pain COMPARISON: April 06, 2020 FINDINGS: There has been partial resolution in the right lung opacities No other change IMPRESSION: Partial resolution in the right pneumonia
--- NOTE | 2020-04-07 09:51 | P.HP ---
Certification for Inpatient Patient admitted to: Inpatient With expected LOS: >2 Midnights Patient will require the following post-hospital care: None Practitioner: I am a practitioner with admitting privileges, knowledge of patient current condition, hospital course, and medical plan of care. Services: Services provided to patient in accordance with Admission requirements found in Title 42 Section 412.3 of the Code of Federal Regulations Patient History Date of Service: 04/06/20 Reason for admission: Altered mental status; drug intoxication; aspiration pneumonia History of Present Illness: Patient is a 55-year-old female came to the hospital with altered mentation. Patient had a drug overdose which was unintentional. She was very lethargic and was not responsive. Patient was found to have an aspiration pneumonia. Patient was started on antibiotic therapy. Patient is on nebs as needed. Patient is lethargic but she does wake up and follows commands. Continue with anti- inflammatories. Repeat chest x-ray and aspiration precautions. Patient will need assistance with drug addiction. Allergies No Known Allergies Allergy (Unverified 04/06/20 17:42) - Past Medical/Surgical History -: Drug abuse Past Surgical History: Patient denies surgical history - Family History Father Family History: Reviewed- Non-Contributory - Social History Smoking Status: Unknown if ever smoked Alcohol use: No CD- Drugs: No Review of Systems 10-point ROS is otherwise unremarkable Physical Examination - Vital Signs Temperature: 99.8 F Blood Pressure: 91/49 Pulse: 78 Respirations: 14 Pulse Ox (%): 92 - Physical Exam General: Alert, In no apparent distress, Confused, Delirious HEENT: Atraumatic, PERRLA, Mucous membr. moist/pink, EOMI, Sclerae nonicteric Neck: Supple, 2+ carotid pulse no bruit, No LAD, Without JVD or thyroid abnorma lity Respiratory: Diminished, Rhonchi/gurgles Cardiovascular: Regular rate/rhythm, Normal S1 S2, No murmurs Gastrointestinal: Normal bowel sounds, Soft and benign, Non-distended, No tenderness Musculoskeletal: No clubbing, No swelling, No tenderness Integumentary: No rashes Neurological: Normal gait, Normal speech, Normal strength at 5/5 x4 extr, Normal tone, Sensation intact, Cranial nerves 3-12 intact, Normal affect Lymphatics: No axilla or inguinal lymphadenopathy - Studies Laboratory Data (last 24 hrs) 04/06/20 16:51: PT 12.6 H, INR 1.07, APTT 20.0 L 04/06/20 14:12: Troponin I 0.03 04/06/20 14:12: Sodium 142, Potassium 4.4, BUN 16, Creatinine 1.02, Glucose 132 H, Total Bilirubin 0.6, AST 18, ALT 27, Alkaline Phosphatase 79 04/06/20 10:50: WBC 11.40 H, Hgb 10.4 L, Hct 32.6 L, Plt Count 317 Assessment & Plan - Problems (Diagnosis) (1) Aspiration pneumonia Current Visit: Yes Status: Acute (2) Polysubstance abuse Current Visit: Yes Status: Acute (3) Altered mental status Current Visit: Yes Status: Acute - Plan 1. Continue with IV antibiotics 2. Awaiting sputum and blood culture 3. Repeat chest x-ray 4. Volunteer Services Specialist regarding substance abuse 5. Monitor labs closely 6. Continue with nebs as needed 7. O2 per protocol 8. Continue with gentle hydration 9. Repeat labs including CBC and renal function in a.m. 10. GI and DVT prophylaxis Discharge Plan: Home Plan to discharge in: Greater than 2 days - Advance Directives Does patient have a Living Will: No Does patient have a Durable POA for Healthcare: No - Code Status/Comfort Care Code Status Assessed: Yes Code Status: Full Code Critical Care: No Time Spent Managing PTS Care (In Minutes): 45
[2020-04-07 09:52] VITALS: BP 91/49; TEMP 99.8
[2020-04-07] MEDS ORDERED: METHYLPREDNISOLONE 125 MG INJ ONE (09:58)
[2020-04-07] MEDS ORDERED: ENOXAPARIN 40 MG/0.4 ML SQ ONE (09:58)
[2020-04-07] MEDS ORDERED: CLINDAMYCIN 900MG/D5W 900 MG/50 ML IVPB IV ONE (09:59)
[2020-04-07] MEDS ORDERED: PIPER/TAZO/NS 3.375gm 3.375 GM/100 ML BAG IVPB SCH (10:52)
--- NOTE | 2020-04-07 10:52 | P.DS ---
Discharge Date: 04/07/20 Disposition: ROUTINE DISCHARGE Discharge Condition: GOOD Reason for Admission: Altered mental status; drug intoxication; aspiration pneumonia - Problems (1) Aspiration pneumonia Status: Acute (2) Polysubstance abuse Status: Acute (3) Altered mental status Status: Acute Brief History of Present Illness: Patient is a 55-year-old female came to the hospital with altered mentation. Patient had a drug overdose which was unintentional. She was very lethargic and was not responsive. Patient was found to have an aspiration pneumonia. Patient was started on antibiotic therapy. Patient is on nebs as needed. Patient is lethargic but she does wake up and follows commands. Continue with anti-i nflammatories. Repeat chest x-ray and aspiration precautions. Patient will need assistance with drug addiction. Hospital Course: Patient did well during hospital stay. At this time, the patient's chest x-ray shows resolution of pneumonia. Patient is stable for discharge on oral antibiotic therapy. Vital Signs/Physical Exam: Temp Pulse Resp BP Pulse Ox 99.8 F 78 14 91/49 L 92 04/07/20 09:51 04/07/20 09:51 04/07/20 09:51 04/07/20 09:51 04/07/20 09:51 General: Alert, In no apparent distress, Oriented x3 Laboratory Data at Discharge: WBC 7.90 K/uL (4.3-10.9) D 04/07/20 05:00 Hgb 8.4 g/dL (12.0-15.0) L 04/07/20 05:00 Hct 26.2 % (36.0-45.0) L D 04/07/20 05:00 Plt Count 296 K/uL (152-406) 04/07/20 05:00 PT 12.6 SECONDS (9.5-12.5) H 04/06/20 16:51 INR 1.07 04/06/20 16:51 APTT 20.0 SECONDS (24.3-36.9) L 04/06/20 16:51 Sodium 140 mmol/L (136-145) 04/07/20 05:00 Potassium 4.4 mmol/L (3.5-5.1) 04/07/20 05:00 BUN 15 mg/dL (7-18) 04/07/20 05:00 Creatinine 0.79 mg/dL (0.55-1.3) 04/07/20 05:00 Glucose 129 mg/dL (74-106) H 04/07/20 05:00 Phosphorus 2.5 mg/dL (2.5-4.9) 04/07/20 05:00 Magnesium 2.1 mg/dL (1.8-2.4) 04/07/20 05:00 Total Bilirubin 0.6 mg/dL (0.2-1.0) 04/07/20 05:00 AST 15 U/L (15-37) 04/07/20 05:00 ALT 23 U/L (12-78) 04/07/20 05:00 Alkaline Phosphatase 65 U/L (45-117) 04/07/20 05:00 Troponin I 0.03 ng/mL (0.0-0.045) 04/06/20 14:12 Triglycerides 49 mg/dL (<150) 04/07/20 05:00 Cholesterol 172 mg/dL (<200) 04/07/20 05:00 HDL Cholesterol 51 mg/dL (40-60) 04/07/20 05:00 Cholesterol/HDL Ratio 3.37 04/07/20 05:00 Home Medications: Albuterol Inhaler [Ventolin Inhaler*] 2 puff IH Q6H PRN #1 hfa.aer.ad 04/07/20 Amox/Clavulanate [Augmentin 875-125 Tab] 875 mg PO BID #14 tab 04/07/20 Benzonatate [Tessalon Perle] 200 mg PO TID PRN #30 cap 04/07/20 predniSONE [Prednisone*] 20 mg PO BID #10 tab 04/07/20 New Medications: Amox/Clavulanate [Augmentin 875-125 Tab] 875 mg PO BID #14 tab predniSONE [Prednisone*] 20 mg PO BID #10 tab Benzonatate [Tessalon Perle] 200 mg PO TID PRN #30 cap PRN Reason: Cough Albuterol Inhaler [Ventolin Inhaler*] 2 puff IH Q6H PRN #1 hfa.aer.ad PRN Reason: Shortness Of Breath Physician Discharge Instructions: Diet:AHA Activity:Fall precautions PHYSICIAN'S DISCHARGE INSTRUCTIONS OK TO DC IV AND DC HOME FOLLOW-UP WITH PRIMARY CARE PROVIDER IN 1-2 WEEKS FOLLOW-UP WITH PULMONARY IN 1-2 WEEKS RETURN TO THE ER IF symptoms worsen CALL or TEXT DR. MOCK AT [phone] IF ANY QUESTIONS REGARDING HOSPITAL STAY. PLEASE CALL THE FLOOR AT [phone] IF ANY MEDICATION OR NURSING QUESTIONS. Patient Discharge Instructions: OK TO DC IV AND DC HOME. FOLLOW-UP WITH PRIMARY CARE PROVIDER IN 1-2 WEEKS. FOLLOW-UP WITH PULMONARY IN 1-2 WEEKS. RETURN TO THE ER IF symptoms worsen. CALL or TEXT DR. MOCK AT [phone] IF ANY QUESTIONS REGARDING HOSPITAL STAY. PLEASE CALL THE FLOOR AT [phone] IF ANY MEDICATION OR NURSING QUESTIONS. Diet: AHA Activity: Fall precautions Followup: NONE,NONE [Primary Care Provider] - Time spent managing pt's care (in minutes): 35
[2020-04-07] MEDS ORDERED: INFLUENZA VACCINE (for 3y+) 0.5 ML DOSE IMVAC ONE (11:00)
[2020-04-07 12:09] VITALS: O2SAT 93
[2020-04-07] MEDS ORDERED: PIPER/TAZO/NS 3.375gm 3.375 GM/100 ML BAG ONE (12:20)
== END 2020-04-07 13:30 | disposition home or self-care (01) ==
LOC: ER 10:35 → ERHOLD 17:16 → INTOOBSV 17:16
PROVIDERS: ADMIT Hospitalist; ATTEND Hospitalist
DX: J69.0 Pneumonitis due to inhalation of food and vomit (principal); R09.02 Hypoxemia; F19.10 Other psychoactive substance abuse, uncomplicated; T50.901A Poisoning by unspecified drugs, medicaments and biological substances, accidental (unintentional), initial encounter; I10 Essential (primary) hypertension; Z20.822 Contact with and (suspected) exposure to COVID-19; Z71.51 Drug abuse counseling and surveillance of drug abuser
CPT/HCPCS: 93005; 87040 ×2; 85025 ×2; 80048; 36415; 80320; 83735; 87205; 80329 ×2; 84100; 85610; 80061; 80076; 80307 ×8; 83605 ×3; 85730; 84484; 80053; 84145; 83880 ×2; 0240U; 70450; 71045 ×2; 94640 ×3; 82805; 94760 ×2; 94762; 99291; 99292; J2310; J1650; J0692; J2543; J0456; J7030 ×3; J2930; J2405; J2920

== ENCOUNTER 2020-10-02 18:56 | Inpatient (IN) | payer OTHER ==
--- OUTSIDE RECORDS SUMMARY | 2020-10-02 18:59 | XMS REPORT | Continuity of Care Document ---
:1965 Author Organization [facility] t Address [address] [place] [address] Care Team Providers Name Role Phone Doctor Unassigned, Name Attending Clinician Unavailable Jonathan MARTIN S Attending Clinician Problems This patient has no known problems. Allergies, Adverse Reactions, Alerts This patient has no known allergies or adverse reactions. Medications This patient has no known medications. Procedures This patient has no known procedures. Encounters Start End Encounter Admission Attending Care Care Encounter Source Date/Time Date/Time Type Type Clinicians Facility Department ID 2020-07-31 2020-07-31 Orders Doctor ALFARO [id number] 00:00:00 00:00:00 Only UnassROSALIND antony [id number] [facility] [id number] 2019-07-20 2019-07-20 Manuelito ALFARO [id number] 00:00:00 00:00:00 Only UnassROSALIND antony [id number] [facility] [id number] [id number] 2019-06-11 2019-06-11 [facility] ESPINOZA Castillo [id number] 10:21:43 10:36:43 ne Visit [facility] [id number] Surgical [id number] Specialti [id number] [address] [place] 2019-05-11 2019-05-11 Orders Doctor ALFARO [id number] 00:00:00 00:00:00 Only Unassigned, [place] [id number] [facility] [id number] [id number] 2019-05-10 2019-05-10 Office ESPINOZA Castillo [id number] 14:05:26 14:20:26 Visit [facility] [id number] Surgical [id number] Special [id number] [address] Results This patient has no known results.
[2020-10-02 20:24] LABS: Absolute Lymphocytes (CBC) 2.6 K/uL (0.7-4.9); Basophils % 0.9 % (0-1.3); Hematocrit 31.7 % (36.0-45.0); MPV 8.3 fL (7.6-11.3); RBC Red Blood Cell Count 3.72 M/uL (3.86-4.86)
[2020-10-02 20:39] LABS: ALT/SGPT 19 U/L (12-78); AST/SGOT 8 U/L (15-37); Albumin 3.8 g/dL (3.4-5.0); Alkaline Phosphatase 57 U/L (45-117); BUN Blood Urea Nitrogen 85 mg/dL (7-18); Bicarbonate 23 mmol/L (21-32); Bilirubin Direct < 0.1 mg/dL (0-0.2); Bilirubin Total 0.6 mg/dL (0.2-1.0); Glucose Level 112 mg/dL (74-106); Magnesium 2.5 mg/dL (1.8-2.4); NT PRO-BNP 236 pg/mL (<125); Potassium 5.3 mmol/L (3.5-5.1); Protein, Total 7.3 g/dL (6.4-8.2); Sodium Level 144 mmol/L (136-145); Troponin (Emerg Dept Use Only) < 0.02 ng/mL (0.0-0.045)
--- NOTE | 2020-10-02 20:41 | RAD REPORT ---
EXAM DESCRIPTION: RAD - Chest Single View - 10/02/2020 8:08 pm CLINICAL HISTORY: CHEST PAIN COMPARISON: June 01 TECHNIQUE: AP portable chest image was obtained 10/02/2020 8:08 pm . FINDINGS: Lung volumes are low. Fibrotic stranding in the mid and lower right lung field matches com parison. Overall interstitial pattern matches comparison. Heart and vasculature are normal. No measur able pleural effusion and no pneumothorax. No acute bony abnormality seen. No acute aortic findings s uspected. IMPRESSION: No acute cardiopulmonary process. No significant change from comparison study.
[2020-10-02 20:45] LABS: Protime INR 1.07
[2020-10-02] MEDS ORDERED: NA CHLORIDE 0.9% 1,000 ML ONE (21:02)
--- NOTE | 2020-10-02 21:24 | RAD REPORT ---
EXAM DESCRIPTION: CT - [id number] - 10/02/2020 9:02 pm CLINICAL HISTORY: fall, head injury COMPARISON: Head C Spine Mpr Wo Con dated 10/30/2018 TECHNIQUE: Axial 5 mm thick images of the head were obtained. Axial 2 mm thick images of the cervic al spine were obtained with sagittal and coronal reconstruction images generated and reviewed. All CT scans are performed using dose optimization technique as appropriate and may include automated exposure control or mA/KV adjustment according to patient size. FINDINGS: No intracranial hemorrhage, mass, edema or acute intracranial finding. No suspicion for ac hughes infarction. No extra-axial fluid collections. Mastoid air cells and paranasal sinuses are clear. No globe or orbit abnormality seen. No significant change from comparison. Cervical bodies are normal in height. No subluxation abnormality. C5-6 and C6-7 disc space narrowing seen with endplate spurring. No other disc space narrowing. No fracture or acute bony abnormality. Pr ominent uncovertebral joint hypertrophy and disc bulge cause significant left foraminal stenosis at C 6-7. Central canal detail is inherently limited. No paraspinal mass or hematoma. IMPRESSION: Negative CT head examination for acute or significant finding. No significant change fr om comparison. Negative CT cervical spine examination for acute finding. Degenerative change including very signifi cant left C6-7 foraminal stenosis similar to prior imaging.
--- NOTE | 2020-10-02 22:39 | P.HP ---
Certification for Inpatient Patient admitted to: Inpatient With expected LOS: <2 Midnights Patient will require the following post-hospital care: None Practitioner: I am a practitioner with admitting privileges, knowledge of patient current condition, hospital course, and medical plan of care. Services: Services provided to patient in accordance with Admission requirements found in Title 42 Section 412.3 of the Code of Federal Regulations Patient History Date of Service: 10/02/20 Reason for admission: acute renal failure History of Present Illness: Ms. Olmos is a 55 yo F with HTN and h/o substance use disorder here today for syncopal episode. She said she was mowing the lawn when she started to feel dizzy. She went into the kitchen and says she passed out, hitting her head on the fridge. She says she has not been drinking much water lately and she noticed that she wasn't sweating outside. She also reports she hasn't had a BM for several days. BUN 85, Cr 3.43, GFR 14. K 5.3. EKG wnl. CT Head without acute findings. Allergies No Known Allergies Allergy (Unverified 04/06/20 17:42) Home Medications: Albuterol Inhaler [Ventolin Inhaler*] 2 puff IH Q6H PRN #1 hfa.aer.ad 04/07/20 Amox/Clavulanate [Augmentin 875-125 Tab] 875 mg PO BID #14 tab 04/07/20 Benzonatate [Tessalon Perle] 200 mg PO TID PRN #30 cap 04/07/20 predniSONE [Prednisone*] 20 mg PO BID #10 tab 04/07/20 - Past Medical/Surgical History -: Drug abuse -: HTN -: C section - Family History Father -: Heart disease Mother -: Stroke Sister -: Cancer - Social History Smoking Status: Current every day smoker Smoking therapy provided: Yes Patient receptive to therapy: No Alcohol use: No CD- Drugs: No Caffeine use: Yes Place of Residence: Home Review of Systems 10-point ROS is otherwise unremarkable Musculoskeletal: Back Pain Physical Examination - Physical Exam General: Alert, In no apparent distress HEENT: Atraumatic, PERRLA, Mucous membr. moist/pink, EOMI, Sclerae nonicteric Neck: Supple, 2+ carotid pulse no bruit, No LAD, Without JVD or thyroid abnormality Respiratory: Clear to auscultation bilaterally, Normal air movement Cardiovascular: Regular rate/rhythm, Normal S1 S2 Gastrointestinal: Normal bowel sounds, No tenderness Musculoskeletal: No tenderness Integumentary: No rashes Neurological: Normal speech, Normal strength at 5/5 x4 extr, Normal tone, Normal affect Lymphatics: No axilla or inguinal lymphadenopathy - Studies Laboratory Data (last 24 hrs) 10/02/20 20:02: PT 12.3, INR 1.07 10/02/20 20:02: WBC 8.40, Hgb 10.5 L, Hct 31.7 L, Plt Count 405 10/02/20 20:02: Sodium 144, Potassium 5.3 H, BUN 85 H, Creatinine 3.43 H, Glucose 112 H, Magnesium 2.5 H, Total Bilirubin 0.6, AST 8 L, ALT 19, Alkaline Phosphatase 57 Assessment and Plan - Problems (Diagnosis) (1) Acute renal failure Current Visit: Yes Status: Acute Qualifiers: Acute renal failure type: unspecified Qualified Code(s): N17.9 - Acute ki dney failure, unspecified (2) Syncope Current Visit: Yes Status: Acute Qualifiers: Syncope type: heat syncope Encounter type: initial encounter Qualified Code(s): T67.1XXA - Heat syncope, initial encounter (3) Hypertension Current Visit: Yes Status: Chronic Qualifiers: Hypertension type: primary hypertension Qualified Code(s): I10 - Essential (primary) hypertension (4) Polysubstance abuse Current Visit: No Status: Chronic - Plan nephrology consulted continue IVF hydration repeat potassium and BMP in the AM, on telemetry, repeat EKG in the AM orthostatic VS in the AM UDS and UA pending docusate/senna PRN reconcile and continue home medications DVT ppx Discharge Plan: Home Plan to discharge in: 24 Hours - Advance Directives Does patient have a Living Will: No Does patient have a Durable POA for Healthcare: No - Code Status/Comfort Care Code Status Assessed: Yes (full code ) Critical Care: No Time Spent Managing Pts Care (In Minutes): 70
[2020-10-03] MEDS ORDERED: NA CHLORIDE 0.9% 1,000 ML IV SCH (00:20)
[2020-10-03] MEDS ORDERED: DOCUSATE NA/SENNA CONC 1 TAB PO PRN (00:20)
[2020-10-03] MEDS ORDERED: ONDANSETRON 4 MG/2 ML VIAL IV PRN (00:20)
[2020-10-03] MEDS ORDERED: NA CHLORIDE 0.9% 1,000 ML IV ONE (01:28)
[2020-10-03] MEDS: ACETAMINOPHEN 500 MG TAB PO PRN ×2 (01:46→18:40)
[2020-10-03 02:10] VITALS: BMI 35.9
[2020-10-03] MEDS ORDERED: SOD POLYSTYREN SUL 15 GM/60 ML UCUP PO ONE ×2 (04:30→12:21)
[2020-10-03 06:07] LABS: Barbiturates NEGATIVE (NEGATIVE); Benzodiazepines NEGATIVE (NEGATIVE); Cocaine NEGATIVE (NEGATIVE); METHAMPHETAM NEGATIVE (NEGATIVE); Methadone POSITIVE (NEGATIVE); Opiates NEGATIVE (NEGATIVE); Phencyclidine NEGATIVE (NEGATIVE); THC Cannibis POSITIVE (NEGATIVE)
[2020-10-03 06:28] LABS: Absolute Lymphocytes (CBC) 2.8 K/uL (0.7-4.9); Basophils % 0.7 % (0-1.3); Hematocrit 28.4 % (36.0-45.0); Lymphocytes % 40.3 % (15.3-44.8); MPV 8.5 fL (7.6-11.3); RBC Red Blood Cell Count 3.29 M/uL (3.86-4.86)
[2020-10-03 06:57] LABS: Albumin 2.9 g/dL (3.4-5.0); Bilirubin Total 0.3 mg/dL (0.2-1.0); Magnesium 2.2 mg/dL (1.8-2.4); Phosphorus 4.5 mg/dL (2.5-4.9); Protein, Total 5.8 g/dL (6.4-8.2); Thyroid Stimulating Hormone 0.845 uIU/mL (0.360-3.740)
[2020-10-03 07:03] LABS: Potassium 5.7 mmol/L (3.5-5.1)
--- NOTE | 2020-10-03 07:59 | EKG ---
Test Date: 2020-10-02 Test Time: 20:13:55 Recovery Auditor: PATRICIA MEASUREMENT RESULTS: Intervals: Rate: 56 ND: 158 QRSD: 86 QT: 398 QTc: 384 [place]: P: 39 ND: 158 QRS: 83 T: 67 INTERPRETIVE STATEMENTS: Sinus bradycardia RSR' or QR pattern in V1 suggests right ventricular conduction delay Borderline ECG Compared to ECG 04/06/2020 11:05:49 RSR' in V1 or V2 now present Sinus rhythm no longer present Incomplete right bundle-branch block no longer present Electronically Signed On 10-03-20 07:57:38 CDT by Juan Hollis
[2020-10-03 08:06] LABS: Urine Appearance CLEAR (Clear); Urine Bilirubin NEGATIVE (Negative); Urine Blood NEGATIVE (Negative); Urine Color YELLOW (Yellow); Urine Glucose NEGATIVE (Negative); Urine Protein NEGATIVE (Negative); Urine Specific Gravity 1.015 (1.005-1.030); Urine Urobilinogen 0.2 mg/dL (0.2-1.0); Urine pH 5.5 (5.0-7.0)
[2020-10-03 08:08] LABS: Urine Microscopic Reflex ORDER UMIC
--- NOTE | 2020-10-03 08:09 | P.CNS ---
Date of Consult: 10/03/20 Reason for Consult: INDERJIT/ CKD Requesting Physician: ezra chambers Chief Complaint: acute renal failure History of Present Illness: 55 yo WF HTN, Chronic Pain presented to the ER with 24-48 hours of moderate to severe, progressive malaise resulting syncope and complicated by ARF. She states that her pain has not be controlled on Methodone so she has been taking about 6 Aleve per day. She finished two bottles of Aleve in the past few weeks. Ms. Olmos is a 55 yo F with HTN and h/o substance use disorder here today for syncopal episode. She said she was mowing the lawn when she started to feel dizzy. She went into the kitchen and says she passed out, hitting her head on the fridge. She says she has not been drinking much water lately and she noticed that she wasn't sweating outside. She also reports she hasn't had a BM for . Allergies No Known Allergies Allergy (Verified 10/03/20 01:50) Home medications list reviewed: Yes Home Medications: Gabapentin [Neurontin*] 400 mg PO TID 10/03/20 Lisinopril/Hydrochlorothiazide [Lisinopril-Hctz 20-12.5 mg Tab] 1 tab PO DAILY 10/03/20 Methadone HCl [Methadose*] 110 mg PO DAILY 10/03/20 - Past Medical/Surgical History Diabetic: No -: Drug abuse -: HTN -: C section - Family History Father Medical History: Heart disease Mother Medical History: Stroke Sister Medical History: Cancer - Social History Smoking Status: Current every day smoker Alcohol use: No CD- Drugs: No Caffeine use: Yes Place of Residence: Home Review of Systems 10-point ROS is otherwise unremarkable General: Weakness, Malaise Neurological: Weakness Physical Examination Temp Pulse Resp BP Pulse Ox 97.0 F 62 18 92/58 L 97 10/03/20 04:00 10/03/20 04:00 10/03/20 04:00 10/03/20 04:00 10/03/20 04:00 General: Oriented x3, Cooperative HEENT: Atraumatic Neck: Supple Respiratory: Clear to auscultation bilaterally Cardiovascular: No edema, Regular rate/rhythm Gastrointestinal: Soft and benign, Non-distended Musculoskeletal: No clubbing, No contractures Integumentary: No rashes, No cyanosis Neurological: Normal speech Laboratory Data (last 24 hrs) 10/02/20 20:02: PT 12.3, INR 1.07 10/02/20 20:02: WBC 8.40, Hgb 10.5 L, Hct 31.7 L, Plt Count 405 10/02/20 20:02: Sodium 144, Potassium 5.3 H, BUN 85 H, Creatinine 3.43 H, Glucose 112 H, Magnesium 2.5 H, Total Bilirubin 0.6, AST 8 L, ALT 19, Alkaline Phosphatase 57 Imagings Data: EXAM DESCRIPTION: RAD - Chest Single View - 10/02/2020 8:08 pm CLINICAL HISTORY: CHEST PAIN COMPARISON: June 01 TECHNIQUE: AP portable chest image was obtained 10/02/2020 8:08 pm . FINDINGS: Lung volumes are low. Fibrotic stranding in the mid and lower right lung field matches comparison. Overall interstitial pattern matches comparison. Heart and vasculature are normal. No measurable pleural effusion and no pneumothorax. No acute bony abnormality seen. No acute aortic findings suspected IMPRESSION: No acute cardiopulmonary process. No significant change from comparison study. EXAM DESCRIPTION: CT - [id number] - 10/02/2020 9:02 pm CLINICAL HISTORY: fall, head injury COMPARISON: Head C Spine Mpr Wo Con dated 10/30/2018 TECHNIQUE: Axial 5 mm thick images of the head were obtained. Axial 2 mm thick images of the cervical spine were obtained with sagittal and coronal reconstruction images generated and reviewed. All CT scans are performed using dose optimization technique as appropriate and may include automated exposure control or mA/KV adjustment according to patient size. FINDINGS: No intracranial hemorrhage, mass, edema or acute intracranial finding. No suspicion for acute infarction. No extra-axial fluid collections. Mastoid air cells and paranasal sinuses are clear. No globe or orbit abnormality seen. No significant change from comparison. Cervical bodies are normal in height. No subluxation abnormality. C5-6 and C6-7 disc space narrowing seen with endplate spurring. No other disc space narrowing. No fracture or acute bony abnormality. Prominent uncovertebral joint hypertrophy and disc bulge cause significant left foraminal stenosis at C6-7. Central canal detail is inherently limited. No paraspinal mass or hematoma IMPRESSION: Negative CT head examination for acute or significant finding. No significant change from comparison. Negative CT cervical spine examination for acute finding. Degenerative change including very significant left C6-7 foraminal stenosis similar to prior imaging. Conclusions/Impression: INDERJIT likely Toxin ATN due to excessive NSAIDs complicated by hypovolemia/ dehydration -No NSAIDs -Change IVF to 1/2NS -Hold HCTZ Hyperkalemia -Agree with kayexalate -Potassium restricted diet -Continue IVF -Hold Lisinopril Hypocalcemia -Start Cholecalciferol & Calcitriol HTN complicated by hypotension -Continue IVF -IVF bolus as needed Anemia in chronic illness -Monitor H&H -Retacrit PRN -Check anemia labs Chronic Pain -Continue Methadone -No NSAIDs Thank you kindly for the consultation.
[2020-10-03 08:44] LABS: Calcium Oxalate Crystals- Ur PRESENT (NONE SEEN); Urine Bacteria <20 /HPF (<20); Urine RBC <5 /HPF (NONE SEEN)
[2020-10-03] MEDS: NACHLORIDE 0.45% 1,000 ML IV SCH ×2 (09:07→17:34)
--- NOTE | 2020-10-03 12:37 | EKG ---
Test Date: 2020-10-03 Test Time: 10:21:08 Cad Application Support Specialist: FARHAN MEASUREMENT RESULTS: Intervals: Rate: 62 AL: 170 QRSD: 86 QT: 398 QTc: 403 [place]: P: 38 AL: 170 QRS: 64 T: 43 INTERPRETIVE STATEMENTS: Normal sinus rhythm RSR' or QR pattern in V1 suggests right ventricular conduction delay Borderline ECG Compared to ECG 10/02/2020 20:13:55 Sinus bradycardia no longer present Electronically Signed On 10-03-20 12:37:28 CDT by Juan Hollis
--- NOTE | 2020-10-03 17:40 | ER ---
Nurse's Notes [facility] Name: Mirta Olmos Age: 55 yrs Sex: Female : 1965 Arrival Date: 10/02/2020 Time: 19:05 Bed 25 Private MD: Diagnosis: Syncope;Acute Kidney Injury;Hyperkalemia Presentation: 10/02 19:36 Chief complaint: Patient states: Pt stated she was mowing a yard and thinks she got kg over heated at 11:00. She stated she noticed she wasn't sweating. Went home and was standing in the kitchen and then passed out, fell backward, head hit the refrigerator. Pt stated she loss consciousness and woke up on the floor. Coronavirus screen: Client denies travel out of the [place] in the last 14 days. At this time, unable to obtain information related to travel outside the [place] At this time, the client does not indicate any symptoms associated with coronavirus-19. Ebola Screen: Patient negative for fever greater than or equal to 101.5 degrees Fahrenheit, and additional compatible Ebola Virus Disease symptoms Patient denies exposure to infectious person. Patient denies travel to an Ebola-affected area in the 21 days before illness onset. 19:36 Method Of Arrival: Ambulatory kg 19:36 Acuity: LESTER 3 kg 19:42 Risk Assessment: Do you want to hurt yourself or someone else? Patient reports no kg desire to harm self or others. 19:42 Initial Sepsis Screen: Does the patient meet any 2 criteria? No. Patient's initial kg sepsis screen is negative. Does the patient have a suspected source of infection? No. Patient's initial sepsis screen is negative. Onset of symptoms was October 02, 2020 at 11:00. Triage Assessment: 19:40 General: Appears in no apparent distress. Behavior is calm, cooperative, appropriate kg for age, quiet. Pain: Complains of pain in back Pain currently is 7 out of 10 on a pain scale. at worst was 8 out of 10 on a pain scale. level that patient reports is acceptable is 5 out of 10 on a pain scale. Quality of pain is described as stabbing, Pain began. X RAY TECH: 19:40 LMP N/A - Post-menopause kg Historical: - Allergies: 19:42 No Known Allergies; kg - Home Meds: 19:42 Methadone Oral [Active]; lisinopril Oral once daily [Active]; gabapentin Oral [Active]; kg - PMHx: 19:42 Hypertension; kg - PSHx: 19:42 section; kg - Immunization history:: Adult Immunizations up to date, Client reports receiving the 2nd dose of the Covid vaccine. - Social history:: Smoking status: Patient reports the use of cigarette tobacco products, smokes one pack cigarettes per day. Screenin:40 Abuse screen: Denies threats or abuse. Denies injuries from another. Nutritional kg screening: No deficits noted. Tuberculosis screening: No symptoms or risk factors identified. Fall Risk None identified. Fall in past 12 months (25 points). No secondary diagnosis (0 pts). No IV (0 pts). Ambulatory Aid- None/Bed Rest/Nurse Assist (0 pts). Gait- Normal/Bed Rest/Wheelchair (0 pts) Mental Status- Oriented to own ability (0 pts). Total Christie Fall Scale indicates. Assessment: 20:04 General: Appears in no apparent distress. comfortable, Behavior is calm, cooperative, ld1 appropriate for age. Pain: Denies pain. Neuro: Level of Consciousness is awake, alert, obeys commands, Oriented to person, place, time, situation. Neuro: Reports a syncopal episode. Cardiovascular: Capillary refill < 3 seconds Patient's skin is warm and dry. Respiratory: Airway is patent Respiratory effort is even, unlabored, Respiratory pattern is regular, symmetrical. GI: Abdomen is round non-distended. : No signs and/or symptoms were reported regarding the genitourinary system. EENT: No signs and/or symptoms were reported regarding the EENT system. Derm: No signs and/or symptoms reported regarding the dermatologic system. Musculoskeletal: No signs and/or symptoms reported regarding the musculoskeletal system. 21:41 Reassessment: Patient appears in no apparent distress at this time. No changes from ld1 previously documented assessment. Patient and/or family updated on plan of care and expected duration. Pain level reassessed. Patient is alert, oriented x 3, equal unlabored respirations, skin warm/dry/pink. 23:46 Reassessment: Patient appears in no apparent distress at this time. No changes from ld1 previously documented assessment. Patient and/or family updated on plan of care and expected duration. Pain level reassessed. Patient is alert, oriented x 3, equal unlabored respirations, skin warm/dry/pink. Vital Signs: 19:36 BP 94 / 55; Pulse 63; Resp 20; Temp 98.1(TE); Pulse Ox 99% on R/A; Weight 118.84 kg kg (R); Height 6 ft. 0 in. (182.88 cm); Pain 5/10; 20:04 BP 92 / 55; Pulse 57; Resp 18; Pulse Ox 99% on R/A; ld1 21:41 BP 98 / 67; Pulse 62; Resp 18; Pulse Ox 95% on R/A; ld1 19:36 Body Mass Index 35.53 (118.84 kg, 182.88 cm) kg ED Course: 19:05 Patient arrived in ED. cf2 19:39 Triage completed. kg 19:40 Patient has correct armband on for positive identification. kg 19:40 Arm band placed on. kg 19:42 No provider procedures requiring assistance completed. kg 19:47 Kyleigh Francois RN is Primary Nurse. ld1 20:04 Inserted saline lock: 22 gauge in right antecubital area, using aseptic technique. ld1 Blood collected. Missed attempt(s): 20 gauge in left antecubital area. 20:08 XRAY Chest (1 view) In Process Unspecified. EDMS 20:19 Dominik Laura PA is PHCP. jmm 20:19 Keny Cardenas MD is Attending Physician. jmm 21:02 CT Head C Spine In Process Unspecified. EDMS 21:13 Seb Velasco is Hospitalizing Provider. [facility] 10/03 00:23 Patient admitted, IV remains in place. em Administered Medications: 10/02 20:42 Drug: NS 0.9% 1000 ml Route: IV; Rate: 1 bolus; Site: right antecubital; ld1 10/03 00:24 Follow up: IV Status: Completed infusion; IV Intake: 1000ml em Intake: 00:24 IV: 1000ml; Total: 1000ml. em Outcome: 10/02 21:14 Decision to Hospitalize by Provider. [facility] 10/03 00:21 Admitted to Med/surg accompanied by tech, via wheelchair, room 222, Report called to marlin Aguilera RN Condition: stable Instructed on discharge instructions, Demonstrated understanding of instructions. 00:26 Patient left the ED. em Signatures: Dispatcher [employer] Dominik Rangel PA PA jmm Munoz, Edgar, RN RN em Abigail Araya 2 Kyleigh Francois RN RN ld1 Alanna Hernandez RN RN kg
--- NOTE | 2020-10-03 17:40 | EDPHYS ---
Physician Documentation [facility] Name: Mirta Olmos Age: 55 yrs Sex: Female : 1965 Arrival Date: 10/02/2020 Time: 19:05 Bed 25 Private MD: ED Physician Keny Cardenas HPI: 10/02 21:10 This 55 yrs old Female presents to ER via Ambulatory with complaints of jmm Dizziness, Weakness, Passed Out Prior To Arrival, Back Pain, Heat Exposure, Leg Pain. 21:10 The patient has experienced syncope, collapsed. Onset: The symptoms/episode jmm began/occurred acutely, today. Associated injury: Head/face:. Is a 55-year-old female with history of hypertension the presents emergency department with complaints of an episode of syncope which occurred after she states she was overheated from outside activities. Patient denies chest pain or shortness of breath. Patient states she has not had a bowel movement in 2 weeks and she has urinated much less frequently.. CRM FUNCTIONAL ANALYST: 19:40 LMP N/A - Post-menopause kg Historical: - Allergies: 19:42 No Known Allergies; kg - Home Meds: 19:42 Methadone Oral [Active]; lisinopril Oral once daily [Active]; gabapentin Oral [Active]; kg - PMHx: 19:42 Hypertension; kg - PSHx: 19:42 section; kg - Immunization history:: Adult Immunizations up to date, Client reports receiving the 2nd dose of the Covid vaccine. - Social history:: Smoking status: Patient reports the use of cigarette tobacco products, smokes one pack cigarettes per day. ROS: 21:10 Constitutional: Negative for fever, chills, and weight loss, Cardiovascular: Negative jmm for chest pain, palpitations, and edema, Respiratory: Negative for shortness of breath, cough, wheezing, and pleuritic chest pain. 21:10 Neuro: Positive for syncope. 21:10 All other systems are negative. Exam: 21:10 Constitutional: This is a well developed, well nourished patient who is awake, alert, jmm and in no acute distress. Head/Face: atraumatic. Eyes: EOMI, no conjunctival erythema appreciated ENT: Moist Mucus Membranes Neck: Trachea midline, Supple Chest/axilla: Normal chest wall appearance and motion. Cardiovascular: Regular rate and rhythm. No edema appreciated Respiratory: Normal respirations, no respiratory distress appreciated Abdomen/GI: Non distended, soft Back: Normal ROM Skin: General appearance color normal MS/ Extremity: Moves all extremities, no obvious deformities appreciated, no edema noted to the lower extremities Neuro: Awake and alert, normal gait Psych: Behavior is normal, Mood is normal, Patient is cooperative and pleasant Vital Signs: 19:36 BP 94 / 55; Pulse 63; Resp 20; Temp 98.1(TE); Pulse Ox 99% on R/A; Weight 118.84 kg kg (R); Height 6 ft. 0 in. (182.88 cm); Pain 5/10; 20:04 BP 92 / 55; Pulse 57; Resp 18; Pulse Ox 99% on R/A; ld1 21:41 BP 98 / 67; Pulse 62; Resp 18; Pulse Ox 95% on R/A; ld1 19:36 Body Mass Index 35.53 (118.84 kg, 182.88 cm) kg MDM: 20:36 Patient medically screened. [facility] 21:11 Data reviewed: vital signs, nurses notes. Counseling: I had a detailed discussion with gautam the patient and/or guardian regarding: the historical points, exam findings, and any diagnostic results supporting the discharge/admit diagnosis, lab results, the need for further work-up and treatment in the hospital. ED course: I discussed the patient with Ms. Sahu whom accepted the patient to Dr. Velasco service. 10/02 19:44 Order name: Basic Metabolic Panel; Complete Time: 21:02 10/02 19:44 Order name: CBC with Diff; Complete Time: 20:37 10/02 19:44 Order name: LFT's; Complete Time: 21:02 10/02 19:44 Order name: Magnesium; Complete Time: 21:02 10/02 19:44 Order name: NT PRO-BNP; Complete Time: 21:02 10/02 19:44 Order name: PT-INR; Complete Time: 21:02 10/02 19:44 Order name: Troponin (emerg Dept Use Only); Complete Time: 21:02 10/02 19:44 Order name: XRAY Chest (1 view); Complete Time: 20:43 10/02 19:44 Order name: EKG; Complete Time: 19:45 26 20:40 Order name: CT Head C Spine; Complete Time: 21:32 [facility] 10/02 21:49 Order name: COVID-19 : Document "Date of Symptom Onset" if Symptomatic. em 10/02 21:49 Order name: [facility] 10/02 23:59 Order name: SARS-COV-2 RT PCR; Complete Time: 00:05 [facility] 10/02 19:44 Order name: Cardiac monitoring; Complete Time: 20:07 10/02 19:44 Order name: EKG - Nurse/Tech; Complete Time: 20:18 10/02 19:44 Order name: IV Saline Lock; Complete Time: 20:07 10/02 19:44 Order name: Labs collected and sent; Complete Time: 20:07 10/02 19:44 Order name: O2 Per Protocol; Complete Time: 20:07 10/02 19:44 Order name: O2 Sat Monitoring; Complete Time: 20:07 10/02 21:42 Order name: CONS Physician Consult [facility] Administered Medications: 20:42 Drug: NS 0.9% 1000 ml Route: IV; Rate: 1 bolus; Site: right antecubital; ld1 10/03 00:24 Follow up: IV Status: Completed infusion; IV Intake: 1000ml em Disposition: 07:09 Co-signature as Attending Physician, Keny Cardenas MD I agree with the assessment and emiliana plan of care. Disposition Summary: 10/02/20 21:14 Hospitalization Ordered Hospitalization Status: Inpatient Admission [facility] Provider: Seb Velasco Location: Telemetry/MedSur (Inpatient) [facility] Condition: Stable [facility] Problem: new [facility] Symptoms: are unchanged [facility] Bed/Room Type: Standard [facility] Room Assignment: 222(10/03/20 00:09) cg Diagnosis - Syncope jmm - Acute Kidney Injury jmm - Hyperkalemia [facility] Forms: - Medication Reconciliation Form m - SBAR form [facility] Signatures: Dispatcher [employer] Keny Cancino MD MD cha Mickail, Joel, PA PA [facility] Tang Chandra RN RN em Daija Guerra RN RN Kyleigh Francois RN RN ld1 Alanna Hernandez RN RN kg Corrections: (The following items were deleted from the chart) 00:09 07/26 21:14 [facility]
--- NOTE | 2020-10-03 18:04 | P.PN ---
Subjective Date of Service: 10/03/20 Chief Complaint: acute renal failure Patient has no complain. Serum creatinine is trending down. Blood pressure has improved. Physical Examination - Vital Signs Temperature: 99.2 F Blood Pressure: 127/60 Pulse: 104 Respirations: 16 Pulse Ox (%): 97 - Physical Exam General: Alert, In no apparent distress, Oriented x3 HEENT: Mucous membr. moist/pink Neck: Supple, JVD not distended Respiratory: Clear to auscultation bilaterally, Normal air movement Cardiovascular: No edema, Regular rate/rhythm, Normal S1 S2, No murmurs Capillary refill: <2 Seconds Gastrointestinal: Normal bowel sounds, Soft and benign, Non-distended, No tenderness Musculoskeletal: No swelling, No tenderness Integumentary: No rashes, No erythema Neurological: Normal speech, Normal strength at 5/5 x4 extr - Studies Laboratory Data (last 24 hrs) 10/02/20 20:02: PT 12.3, INR 1.07 10/02/20 20:02: WBC 8.40, Hgb 10.5 L, Hct 31.7 L, Plt Count 405 10/02/20 20:02: Sodium 144, Potassium 5.3 H, BUN 85 H, Creatinine 3.43 H, Glucose 112 H, Magnesium 2.5 H, Total Bilirubin 0.6, AST 8 L, ALT 19, Alkaline Phosphatase 57 Assessment And Plan - Current Problems (Diagnosis) (1) Acute renal failure Current Visit: Yes Status: Acute Qualifiers: Acute renal failure type: unspecified Qualified Code(s): N17.9 - Acute kidney failure, unspecified (2) Syncope Current Visit: Yes Status: Acute Qualifiers: Syncope type: heat syncope Encounter type: initial encounter Qualified Code(s): T67.1XXA - Heat syncope, initial encounter (3) Hypertension Current Visit: Yes Status: Chronic Qualifiers: Hypertension type: primary hypertension Qualified Code(s): I10 - Essential (primary) hypertension (4) Polysubstance abuse Current Visit: No Status: Chronic (5) Hyperkalemia Current Visit: Yes Status: Acute - Plan Patient seen by nephrology. Serum creatinine improving with IV hydration. Continue IV fluid. Monitor renal function. Patient syncopal episode most likely related to orthostatic hypotension. Her blood pressure has improved with hydration. Hold antihypertensives. Oral Kayexalate p.r.n. for hyperkalemia. Resume home dose methadone maintenance. Patient states she takes methadone 110 mg daily. to bring methadone to to confirm the dose.
[2020-10-03] MEDS: GABAPENTIN 400 MG CAP PO SCH (20:17)
[2020-10-03] MEDS: DOCUSATE NA 100 MG CAP PO SCH (20:17)
[2020-10-04] MEDS: NACHLORIDE 0.45% 1,000 ML IV SCH ×2 (02:39→09:00)
[2020-10-04 04:03] LABS: Absolute Lymphocytes (CBC) 2.2 K/uL (0.7-4.9); Basophils % 1.3 % (0-1.3); Lymphocytes % 19.4 % (15.3-44.8); MPV 8.4 fL (7.6-11.3); RBC Red Blood Cell Count 2.95 M/uL (3.86-4.86)
[2020-10-04 04:41] LABS: Albumin 2.7 g/dL (3.4-5.0); Bilirubin Total 0.5 mg/dL (0.2-1.0); Ferritin 88.2 ng/mL (8-388); Folic Acid, (Folate) 8.8 ng/mL (3.1-17.5); Potassium 4.5 mmol/L (3.5-5.1); Protein, Total 5.8 g/dL (6.4-8.2); Uric Acid 6.7 mg/dL (2.6-6.0)
[2020-10-04] MEDS: ACETAMINOPHEN 500 MG TAB PO PRN (06:24)
[2020-10-04] MEDS ORDERED: METHADONE HCL 110 MG PO SCH (09:00)
[2020-10-04] MEDS ORDERED: CALCITROL 0.25 MCG CAP PO SCH (09:00)
[2020-10-04] MEDS ORDERED: VITAMIN D 5,000 UNIT CAP PO SCH (09:00)
[2020-10-04] MEDS ORDERED: NACHLORIDE 0.45% 1,000 ML IV SCH (09:11)
--- NOTE | 2020-10-04 09:13 | P.PN ---
Date of Service: 10/04/20 Vital Signs Temp Pulse Resp BP Pulse Ox 97.1 F 67 16 97/55 L 95 10/04/20 04:00 10/04/20 04:00 10/04/20 04:00 10/04/20 04:00 10/04/20 04:00 Medications Acetaminophen (Acetaminophen 500 Mg Tab) 500 mg PO Q4HP PRN PRN Reason: Pain scale 2-4 (Mild) Last Admin: 10/04/20 06:24 Dose: 500 mg Documented by: Calcitriol (Calcitrol 0.25 Mcg Cap) 0.5 mcg PO DAILY [facility] Cholecalciferol (Vitamin D 5,000 Unit Cap) 5,000 unit PO DAILY [facility] Docusate Sodium (Docusate Na 100 Mg Cap) 100 mg PO BID [facility] Last Admin: 10/03/20 20:17 Dose: 100 mg Documented by: Gabapentin (Gabapentin 400 Mg Cap) 400 mg PO TID [facility] Last Admin: 10/03/20 20:17 Dose: 400 mg Documented by: Home Med (Methadone Hcl 110 Mg) 1 ea PO DAILY [facility] Sodium Chloride (Sodium Chloride 0.45%) 1,000 mls @ 125 mls/hr IV .Q8H [facility] Last Admin: 10/04/20 02:39 Dose: 1,000 mls Documented by: Ferric Sodium Gluconate Complex 250 mg/ Sodium Chloride 120 mls @ 100 mls/hr IV DAILY [facility] Stop: 10/05/20 10:11 Ondansetron HCl (Ondansetron 4 Mg/2 Ml Vial) 4 mg IV Q6HP PRN PRN Reason: NAUSEA / VOMITING Senna/Docusate Sodium (Docusate Na/Senna Conc 1 Tab) 2 tab PO BEDTIME PRN PRN Reason: CONSTIPATION Last Admin: 10/03/20 01:48 Dose: 2 tab Documented by: Sodium Chloride (Flush Normal Saline 10 Ml) 10 ml IV BID [facility] Last Admin: 10/03/20 22:00 Dose: 10 ml Documented by: Assessment/ Plan: Nephrology Feeling better today. CPS stable without CP or SOB. Good urine output. No acute events overnight. Vitals, medications, blood work and imaging reviewed in the chart. General: Oriented x3, Cooperative HEENT: Atraumatic Neck: Supple Respiratory: Clear to auscultation bilaterally Cardiovascular: No edema, Regular rate/rhythm Gastrointestinal: Soft and benign, Non-distended Musculoskeletal: No clubbing, No contractures Integumentary: No rashes, No cyanosis Neurological: Normal speech Laboratory Data (last 24 hrs) 10/02/20 20:02: PT 12.3, INR 1.07 10/02/20 20:02: WBC 8.40, Hgb 10.5 L, Hct 31.7 L, Plt Count 405 10/02/20 20:02: Sodium 144, Potassium 5.3 H, BUN 85 H, Creatinine 3.43 H, Glucose 112 H, Magnesium 2.5 H, Total Bilirubin 0.6, AST 8 L, ALT 19, Alkaline Phosphatase 57 Imagings Data: EXAM DESCRIPTION: RAD - Chest Single View - 10/02/2020 8:08 pm CLINICAL HISTORY: CHEST PAIN COMPARISON: June 01 TECHNIQUE: AP portable chest image was obtained 10/02/2020 8:08 pm . FINDINGS: Lung volumes are low. Fibrotic stranding in the mid and lower right lung field matches comparison. Overall interstitial pattern matches comparison. Heart and vasculature are normal. No measurable pleural effusion and no pneumothorax. No acute bony abnormality seen. No acute aortic findings suspected IMPRESSION: No acute cardiopulmonary process. No significant change from comparison study. EXAM DESCRIPTION: CT - [id number] - 10/02/2020 9:02 pm CLINICAL HISTORY: fall, head injury COMPARISON: Head C Spine Mpr Wo Con dated 10/30/2018 TECHNIQUE: Axial 5 mm thick images of the head were obtained. Axial 2 mm thick images of the cervical spine were obtained with sagittal and coronal reconstruction images generated and reviewed. All CT scans are performed using dose optimization technique as appropriate and may include automated exposure control or mA/KV adjustment according to patient size. FINDINGS: No intracranial hemorrhage, mass, edema or acute intracranial finding. No suspicion for acute infarction. No extra-axial fluid collections. Mastoid air cells and paranasal sinuses are clear. No globe or orbit abnormality seen. No significant change from comparison. Cervical bodies are normal in height. No subluxation abnormality. C5-6 and C6-7 disc space narrowing seen with endplate spurring. No other disc space narrowing. No fracture or acute bony abnormality. Prominent uncovertebral joint hypertrophy and disc bulge cause significant left foraminal stenosis at C6-7. Central canal detail is inherently limited. No paraspinal mass or hematoma IMPRESSION: Negative CT head examination for acute or significant finding. No significant change from comparison. Negative CT cervical spine examination for acute finding. Degenerative change including very significant left C6-7 foraminal stenosis similar to prior imaging. Conclusions/Impression: INDERJIT likely PreRenal/ATN in the setting of excess NSAIDs and hypovolemia/ dehydration -No NSAIDs -Reduce IVF today -Hold HCTZ Hyperkalemia -Agree with kayexalate -Potassium restricted diet -Continue IVF -Hold Lisinopril Hypocalcemia -Continue Cholecalciferol & Calcitriol HTN complicated by hypotension -Reduce IVF -IVF bolus as needed Anemia in chronic illness Iron Deficiency -Monitor H&H -Retacrit PRN -Give IV iron Chronic Pain -Continue Methadone -No NSAIDs
[2020-10-04] MEDS ORDERED: SOD FERRIC GLUC COMPLX/SUCROSE 250 MG in NA CHLORIDE 0.9% 250 ML IV SCH (09:30)
[2020-10-04] MEDS: DOCUSATE NA 100 MG CAP PO SCH (09:49)
[2020-10-04] MEDS: GABAPENTIN 400 MG CAP PO SCH ×2 (09:49→14:00)
[2020-10-04 10:55] VITALS: BP 132/76; TEMP 97
--- NOTE | 2020-10-04 13:18 | P.DS ---
Admission Date: 10/02/20 Discharge Date: 10/04/20 Discharge Condition: FAIR Reason for Admission: acute renal failure - Problems (1) Acute renal failure Current Visit: Yes Status: Acute Qualifiers: Acute renal failure type: unspecified Qualified Code(s): N17.9 - Acute kidney failure, unspecified (2) Syncope Current Visit: Yes Status: Acute Qualifiers: Syncope type: heat syncope Encounter type: initial encounter Qualified Code(s): T67.1XXA - Heat syncope, initial encounter (3) Hypertension Current Visit: Yes Status: Chronic Qualifiers: Hypertension type: primary hypertension Qualified Code(s): I10 - Essential (primary) hypertension (4) Polysubstance abuse Current Visit: No Status: Chronic (5) Hyperkalemia Current Visit: Yes Status: Acute Brief History of Present Illness: 55 yo woman with HTN and h/o substance use disorder presented to the emergency department due to syncopal episode. She said she was mowing the lawn when she started to feel dizzy. She went into her kitchen and passed out, hitting her head on the fridge. She stated she had been working in the heat for about 4 hrs. BUN 85, Cr 3.43, GFR 14. K 5.3. EKG wnl. CT Head without acute findings. Patient admitted for further management of acute renal failure and syncope. Hospital Course: Patient admitted to the medical floor and aggressively hydrated with IV fluid. Her blood pressure was initially borderline low it improved to normal with IV fluid. Patient is on lisinopril and hydrochlorothiazide which were discontinue. She had hyperkalemia which was treated with oral Kayexalate. Nephrology-Dr. Thorpe saw patient and assisted with management. Acute renal failure improved signficantly. Serum creatinine is down to 1.45. Noted patient is on methadone maintenance for polysubstance abuse. She recently used ibuprofen for pain. Patient informed to avoid NSAIDs. She has clinically improved and deemed stable for discharge. Vital Signs/Physical Exam: Temp Pulse Resp BP Pulse Ox 97 F 65 16 132/76 96 10/04/20 08:00 10/04/20 08:00 10/04/20 08:00 10/04/20 08:00 10/04/20 08:00 General: Alert, In no apparent distress, Oriented x3 HEENT: Mucous membr. moist/pink Neck: JVD not distended Respiratory: Clear to auscultation bilaterally, Normal air movement Cardiovascular: No edema, Regular rate/rhythm, Normal S1 S2 Gastrointestinal: Normal bowel sounds, Soft and benign, Non-distended, No tenderness Musculoskeletal: No swelling Integumentary: No rashes, No erythema Neurological: Normal strength at 5/5 x4 extr Laboratory Data at Discharge: WBC 11.40 K/uL (4.3-10.9) H D 10/04/20 03:18 Hgb 8.4 g/dL (12.0-15.0) L 10/04/20 03:18 Hct 25.0 % (36.0-45.0) L 10/04/20 03:18 Plt Count 286 K/uL (152-406) 10/04/20 03:18 PT 12.3 SECONDS (9.5-12.5) 10/02/20 20:02 INR 1.07 10/02/20 20:02 Sodium 142 mmol/L (136-145) 10/04/20 03:18 Potassium 4.5 mmol/L (3.5-5.1) 10/04/20 03:18 BUN 41 mg/dL (7-18) H D 10/04/20 03:18 Creatinine 1.45 mg/dL (0.55-1.3) H D 10/04/20 03:18 Glucose 94 mg/dL (74-106) 10/04/20 03:18 Uric Acid 6.7 mg/dL (2.6-6.0) H 10/04/20 03:18 Phosphorus 4.5 mg/dL (2.5-4.9) 10/03/20 06:07 Magnesium 2.2 mg/dL (1.8-2.4) 10/03/20 06:07 Total Bilirubin 0.5 mg/dL (0.2-1.0) 10/04/20 03:18 AST 8 U/L (15-37) L 10/04/20 03:18 ALT 13 U/L (12-78) 10/04/20 03:18 Alkaline Phosphatase 43 U/L (45-117) L 10/04/20 03:18 Triglycerides 159 mg/dL (<150) H 10/03/20 06:07 Cholesterol 121 mg/dL (<200) 10/03/20 06:07 HDL Cholesterol 22 mg/dL (40-60) L 10/03/20 06:07 Cholesterol/HDL Ratio 5.50 10/03/20 06:07 Home Medications: Gabapentin [Neurontin*] 400 mg PO TID 10/03/20 Methadone HCl [Methadose*] 110 mg PO DAILY 10/03/20 Calcitrol [Rocaltrol*] 0.5 mcg PO DAILY #30 cap 10/04/20 Cefpodoxime Proxetil 100 mg PO BID #6 tablet 10/04/20 Cholecalciferol (Vitamin D3) [Vitamin D 5,000 IU Cap*] 5,000 unit PO DAILY #30 cap 10/04/20 Docusate [Colace Cap*] 100 mg PO BID #60 cap 10/04/20 Iron Polysaccharide Complex [Polysaccharide Iron] 150 mg PO DAILY #30 capsule 10/04/20 New Medications: Cefpodoxime Proxetil 100 mg PO BID #6 tablet Docusate [Colace Cap*] 100 mg PO BID #60 cap Iron Polysaccharide Complex [Polysaccharide Iron] 150 mg PO DAILY #30 capsule Calcitrol [Rocaltrol*] 0.5 mcg PO DAILY #30 cap Cholecalciferol (Vitamin D3) [Vitamin D 5,000 IU Cap*] 5,000 unit PO DAILY #30 cap Physician Discharge Instructions: Patient taught orthostatic precautions Diet: AHA Activity: Ad trell Followup: Rahel Rouse FNPC [Primary Care Provider] - Time spent managing pt's care (in minutes): 38
[2020-10-04 14:08] VITALS: O2SAT 100
== END 2020-10-04 15:06 | disposition home or self-care (01) | DRG 684 ==
LOC: ER 18:56 → ERHOLD 21:42 → 2ND 10-03 00:16
PROVIDERS: ADMIT Internal Medicine; ATTEND Internal Medicine
DX: N17.0 Acute kidney failure with tubular necrosis (principal); E87.5 Hyperkalemia; E83.51 Hypocalcemia; I10 Essential (primary) hypertension; I95.9 Hypotension, unspecified; D50.9 Iron deficiency anemia, unspecified; G89.29 Other chronic pain; R55 Syncope and collapse; F19.10 Other psychoactive substance abuse, uncomplicated; Z20.822 Contact with and (suspected) exposure to COVID-19
CPT/HCPCS: 36415; 70450; 71045; 72125; 80048; 80053; 80061; 80076; 80307; 81003; 81015; 82550; 82607; 82728; 82746; 83540; 83735; 83880; 84100; 84132; 84439; 84443; 84466; 84484; 84550; 85025; 85610; 87086; 87088; 93005; 94760; 96360; 96361; 99285; J2916; J7030; J7050; U0003

== ENCOUNTER 2021-09-15 15:35 | Emergency (ER) | payer OTHER ==
[2021-09-15] MEDS ORDERED: HYDROCODONE/APAP 10/325 TAB ONE (16:55)
[2021-09-15] MEDS ORDERED: KETOROLAC 30 MG/ML INJ ONE (16:56)
[2021-09-15] MEDS ORDERED: LIDOCAINE 4% PATCH ONE (16:56)
[2021-09-15] MEDS ORDERED: dexAMETHasone 10 MG/ML VIAL ONE (16:56)
--- NOTE | 2021-09-15 17:54 | ER ---
Nurse's Notes [facility] Name: Mirta Olmos Age: 56 yrs Sex: Female : 1965 Arrival Date: 09/15/2021 Time: 15:36 Bed 6 Private MD: Rahel Rouse Diagnosis: Lumbago with sciatica Presentation: 09/15 15:50 Chief complaint: Patient states: REPORTS PAIN IN BACK AND LEGS SINCE 3 DAYS AFTER 1 RECEIVING INJECTIONS IN HER BACK 6 WEEKS AGO. Coronavirus screen: Vaccine status: Patient reports receiving the 2nd dose of the covid vaccine. Client denies travel out of the [place] in the last 14 days. At this time, the client does not indicate any symptoms associated with coronavirus-19. Ebola Screen: Patient negative for fever greater than or equal to 101.5 degrees Fahrenheit, and additional compatible Ebola Virus Disease symptoms. Initial Sepsis Screen: Does the patient meet any 2 criteria? No. Patient's initial sepsis screen is negative. Does the patient have a suspected source of infection? No. Patient's initial sepsis screen is negative. Risk Assessment: Do you want to hurt yourself or someone else? Patient reports no desire to harm self or others. Onset of symptoms is unknown. 15:50 Method Of Arrival: Ambulatory [facility] 15:50 Acuity: LESTER 4 [facility] 16:09 Acuity: LESTER 3 iw Triage Assessment: 15:54 General: Appears uncomfortable, Behavior is calm, cooperative, appropriate for age. [facility] Pain: Complains of pain in back, right leg and left leg Pain currently is 8 out of 10 on a pain scale. Musculoskeletal: Circulation, motion, and sensation intact. 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 - Social history:: Smoking status: Patient reports the use of cigarette tobacco products, smokes one pack cigarettes per day. Screenin:15 Abuse screen: Denies threats or abuse. Denies injuries from another. Nutritional bp screening: No deficits noted. Tuberculosis screening: No symptoms or risk factors identified. Fall Risk None identified. Assessment: 16:15 General: SEE TRIAGE NOTE. bp 18:23 Reassessment: PT DC HOME AMBULATORY, DX WITH SCIATICA. Neuro: Gait is steady. bp Vital Signs: 15:50 BP 114 / 48; Pulse 64; Resp 18; Temp 96.8(T); Pulse Ox 98% on R/A; Weight 111.13 kg; 1 Height 6 ft. 0 in. (182.88 cm); Pain 8/10; 18:23 BP 121 / 51; Pulse 67; Resp 18; Pulse Ox 98% ; bp 15:50 Body Mass Index 33.23 (111.13 kg, 182.88 cm) 1 ED Course: 15:36 Patient arrived in ED. am2 15:36 Rahel Rouse is Private Physician. am2 15:52 Triage completed. bh1 15:54 Arm band placed on left wrist. bh1 16:12 Rasta Cote NP is PHCP. pm1 16:12 Benji Borden MD is Attending Physician. pm1 16:15 Rosalino Sinclair, JENELLE is Primary Nurse. bp 16:15 Patient has correct armband on for positive identification. Bed in low position. Call bp light in reach. Side rails up X2. Adult w/ patient. 18:23 No provider procedures requiring assistance completed. Patient did not have IV access bp during this emergency room visit. Administered Medications: 16:45 Drug: Lidoderm Patch 5 % (700 mg/patch) 1 patches Route: Topical; Site: affected area; bp 16:45 Drug: Decadron (dexamethasone) 10 mg Route: IM; Site: right gluteus; bp 18:25 Follow up: Response: No adverse reaction; Pain is decreased bp 16:45 Drug: [place] (HYDROcodone-acetaminophen) 10 mg-325 mg 1 tabs Route: PO; bp 18:25 Follow up: Response: No adverse reaction; Pain is decreased bp 16:45 Drug: Ketorolac 60 mg Route: IM; Site: right gluteus; bp 18:25 Follow up: Response: No adverse reaction; Pain is decreased bp 18:09 Drug: morphine 4 mg Route: IM; Site: right deltoid; bp 18:25 Follow up: Response: No adverse reaction; Pain is decreased bp Medication: 16:15 VIS not applicable for this client. bp Outcome: 17:53 Discharge ordered by MD. pm1 18:23 Discharged to home ambulatory, with family. bp 18:23 Condition: stable 18:23 Discharge instructions given to patient, Instructed on discharge instructions, follow up and referral plans. medication usage, Demonstrated understanding of instructions, follow-up care, medications, Prescriptions given X 3. 18:25 Patient left the ED. bp Signatures: Eliza Garcia RN JENELLE iw Rasta Cote NP LAB INSTRUCTOR pm1 Dahiana Juárez am2 Rosalino Sinclair RN RN bp Tracee Campos RN RN bh1 Corrections: (The following items were deleted from the chart) 15:54 15:52 Home Meds: lisinopril Oral once daily; bh1 bh1 15:54 15:52 Home Meds: Methadone Oral; bh1 bh1 15:54 15:52 PMHx: Hypertension; bh1 bh1 15:54 15:52 PMHx: Hypertension; bh1 bh1 15:54 15:53 Home Meds: Methadone Oral; bh1 bh1 15:54 15:53 Home Meds: lisinopril Oral once daily; bh1 bh1
--- NOTE | 2021-09-15 17:54 | EDPHYS ---
Physician Documentation [facility] Name: Mirta Olmos Age: 56 yrs Sex: Female : 1965 Arrival Date: 09/15/2021 Time: 15:36 Bed 6 Private MD: Rahel Rouse ED Physician Benji Borden HPI: 09/15 16:26 This 56 yrs old Female presents to ER via Ambulatory with complaints of Back Pain, Leg pm1 Pain. 16:26 The patient presents with pain that is chronic. The symptoms are located in the low pm1 back. 16:26 Onset: The symptoms/episode began/occurred 5 week(s) ago. The pain radiates to the pm1 right leg and left leg. Associated signs and symptoms: The patient has no apparent associated signs or symptoms, Pertinent negatives: incontinence, numbness, tingling, weakness. The problem was sustained from a chronic condition, the patient has known disc disease, Patient with MRI on 05/24/2021 that shows multilevel moderate to severe degenerative changes to L3-L4 and L4 - L5. Modifying factors: The patient symptoms are alleviated by steroid injection to back 6 weeks ago. Pain was resolved for 3 days but returned afterwards. Severity of symptoms: in the emergency department the symptoms are unchanged, Patient's baseline chronic back pain with radiation to both legs. The patient has been recently seen by a physician: a [employer], Patient does not have a prescription for pain medicines. 16:26 Patient saw her pain management doctor and his recommendation was further steroid pm1 injections. However patient does not want the injections due to the pain she experiences getting them last time. 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 - Social history:: Smoking status: Patient reports the use of cigarette tobacco products, smokes one pack cigarettes per day. ROS: 16:26 Constitutional: Negative for fever, chills, and weight loss, Cardiovascular: Negative pm1 for chest pain, palpitations, and edema, Respiratory: Negative for shortness of breath, cough, wheezing, and pleuritic chest pain, Abdomen/GI: Negative for abdominal pain, nausea, vomiting, diarrhea, and constipation. 16:26 : Negative for injury, bleeding, discharge, and swelling, MS/Extremity: Negative for injury and deformity, Skin: Negative for injury, rash, and discoloration, Neuro: Negative for headache, weakness, numbness, tingling, and seizure. 16:26 Back: Positive for of the low back area, Pain. 16:26 All other systems are negative. Exam: 16:26 Constitutional: This is a well developed, well nourished patient who is awake, alert, pm1 and in no acute distress. Head/Face: Normocephalic, atraumatic. 16:26 Skin: Warm, dry with normal turgor. Normal color with no rashes, no lesions, and no evidence of cellulitis. MS/ Extremity: Pulses equal, no cyanosis. Neurovascular intact. Full, normal range of motion. 16:26 Cardiovascular: Exam negative for acute changes, Rate: normal, Rhythm: regular, Pulses: no pulse deficits are appreciated. 16:26 Respiratory: Exam negative for acute changes, respiratory distress, shortness of breath. 16:26 Back: pain, that is mild, of the lumbar area, vertebral tenderness. 16:26 Neuro: Exam negative for acute changes, Orientation: is normal, Mentation: is normal, Motor: moves all fours, strength is 5/5 in all extremities, strength is 5/5 in the Plantar and dorsiflexion of bilateral great toes. Vital Signs: 15:50 BP 114 / 48; Pulse 64; Resp 18; Temp 96.8(T); Pulse Ox 98% on R/A; Weight 111.13 kg; 1 Height 6 ft. 0 in. (182.88 cm); Pain 8/10; 18:23 BP 121 / 51; Pulse 67; Resp 18; Pulse Ox 98% ; bp 15:50 Body Mass Index 33.23 (111.13 kg, 182.88 cm) [facility] MDM: 16:12 Patient medically screened. pm1 17:33 Data reviewed: vital signs. Data interpreted: Pulse oximetry: on room air is 98 %. pm1 Interpretation: normal. 17:44 Counseling: I had a detailed discussion with the patient and/or guardian regarding: the pm1 historical points, exam findings, and any diagnostic results supporting the discharge/admit diagnosis, the need for outpatient follow up, for definitive care, a [employer], to return to the emergency department if symptoms worsen or persist or if there are any questions or concerns that arise at home. 18:11 ED course: Patient with pain management. Appears to the patient the current plan is pm1 steroid injections to back. PMPaware reviewed and patient is taking clonazepam from PCP. Since patient is under pain management will discharge patient home with medications that are not narcotic. Administered Medications: 16:45 Drug: Lidoderm Patch 5 % (700 mg/patch) 1 patches Route: Topical; Site: affected area; bp 16:45 Drug: Decadron (dexamethasone) 10 mg Route: IM; Site: right gluteus; bp 18:25 Follow up: Response: No adverse reaction; Pain is decreased bp 16:45 Drug: [place] (HYDROcodone-acetaminophen) 10 mg-325 mg 1 tabs Route: PO; bp 18:25 Follow up: Response: No adverse reaction; Pain is decreased bp 16:45 Drug: Ketorolac 60 mg Route: IM; Site: right gluteus; bp 18:25 Follow up: Response: No adverse reaction; Pain is decreased bp 18:09 Drug: morphine 4 mg Route: IM; Site: right deltoid; bp 18:25 Follow up: Response: No adverse reaction; Pain is decreased bp Disposition: 19:02 Co-signature as Attending Physician, Benji Borden MD. rn Disposition Summary: 09/15/21 17:53 Discharge Ordered Location: Home pm1 Problem: new pm1 Symptoms: have improved pm1 Condition: Stable pm1 Diagnosis - Lumbago with sciatica pm1 Followup: pm1 - With: Emergency Department - When: As needed - Reason: Worsening of condition Followup: pm1 - With: Private Physician - When: 2 - 3 days - Reason: Recheck today's complaints, Continuance of care, Re-evaluation by your physician Discharge Instructions: - Discharge Summary Sheet pm1 - Chronic Back Pain pm1 - Sciatica pm1 Forms: - Medication Reconciliation Form pm1 - Thank You Letter pm1 - Antibiotic Education pm1 - Prescription Opioid Use pm1 Prescriptions: - Cyclobenzaprine 10 mg Oral Tablet - take 1 tablet by ORAL route every 8 hours As needed; 30 tablet; Refills: 0, pm1 Product Selection Permitted - Diclofenac Sodium 75 mg Oral tablet,delayed release (DR/EC) - take 1 tablet by ORAL route 2 times per day As needed; 30 tablet; Refills: 0, pm1 Product Selection Permitted - Lidoderm 5 % Topical adhesive patch,medicated - apply 1 patch by TRANSDERMAL route once daily As needed 12 hours on and 12 pm1 hours off in a 24-hour period; 30 patch; Refills: 0, Product Selection Permitted Signatures: Benji Borden MD MD rn Marinas, Patrick, NP DIRECTOR OF STRATEGIC COMMUNICATIONS pm1 Rosalino Sinclair RN RN bp Hicks, Barbara, RN RN [facility] Corrections: (The following items were deleted from the chart) 15:54 15:52 Home Meds: lisinopril Oral once daily; [place] [id number] 15:54 15:52 Home Meds: Methadone Oral; [place] [id number] 15:54 15:52 PMHx: Hypertension; [place] [id number] 15:54 15:52 PMHx: Hypertension; [place] [address] 15:54 15:53 Home Meds: Methadone Oral; [place] [address] 15:54 15:53 Home Meds: lisinopril Oral once daily; [place] [id number] 17:53 17:53 Low back pain pm1 pm1 18:20 16:26 The patient has not recently seen a physician, pm1 pm1
[2021-09-15] MEDS ORDERED: MORPHINE 4 MG/ML SYR ONE (18:13)
[2021-09-15 18:48] VITALS: TEMP 96.8; O2SAT 98
[2021-09-15 18:49] VITALS: BP 121/51
== END 2021-09-15 18:25 | disposition home or self-care (01) ==
LOC: ER 15:35
DX: M54.40 Lumbago with sciatica, unspecified side (principal); F17.210 Nicotine dependence, cigarettes, uncomplicated
CPT/HCPCS: J2001; J1100; 96372; 99283

== ENCOUNTER 2021-11-06 17:11 | Emergency (ER) | payer OTHER ==
--- OUTSIDE RECORDS SUMMARY | 2021-11-06 17:16 | XMS REPORT | Continuity of Care Document ---
:1965 Author Organization [facility] t Address [address] [place] [address] Care Team Providers Name Role Phone CLINIC, [facility] Primary Care Physician Unavailable ASHLEY VINCENT Attending Clinician Unavailable Ashley Vincent MD Attending Clinician Nic Jarrell MD Attending Clinician Doctor Unassigned, [place] Attending Clinician Unavailable Campos Mendoza Attending Clinician Payers Payer Name Policy Type Policy Number Effective Date Expiration Date [facility] [id number] 2019 [facility] MEDICAID 00:00:00 Problems Condition Condition Condition Status Onset Resolution Last Treating Co mments Source Name Details Category Date Date Treatment Clinician Date Chronic Chronic Disease Active Univers bilateral bilateral -24 ity of low back low back 00:00: [place] pain with pain with 00 Medi karissa sciatica sciatica Branch Allergies, Adverse Reactions, Alerts Allergy Allergy Status Severity Reaction(s) Onset Inactive Treating Comm ents Source Name Type Date Date Clinician NO KNOWN Drug Active Univers ALLERGIE Class ity of S [facility] Branch Social History Social Habit Start Date Stop Date Quantity Comments Source History of Smokes tobacco University of tobacco use daily [facility] Branch Exposure to 2021-08-11 2021-08-21 Not sure University SARS-CoV-2 00:00:00 13:37:00 [facility] [place] [facility] (event) Branch Tobacco use and 2019-05-03 2019-05-03 Smokeless tobacco Un iversity of exposure 00:00:00 00:00:00 non-user [facility] Sex Ass[birth year] At [birth year] Universit y of 00:00:00 00:00:00 [facility] Smoking Status Start Date Stop Date Source Smokes tobacco daily 2019-05-03 00:00:00 [facility] ity [facility] Medications Ordered Filled Start Stop Current Ordering Indication Dosage Frequency Signature Comments Components Source Medication Medication Date Date Medication? Clinician (SIG) Name Name tiZANidine Yes [id number] 2mg Take 1 U nivers 2 mg tablet 6-14 tablet by ity of 00:00: mouth [place] ([facility]) Medical times Branch daily as needed for Pain (scale 4-6). gabapentin Yes [id number] 600mg Take 1 Univers 600 mg 6-14 tablet by ity of tablet 00:00: mouth 3 [place] ([facility]) Medical times Branch daily. tiZANidine Yes [id number] 2mg Take 1 U nivers 2 mg tablet 6-14 tablet by ity of 00:00: mouth [place] ([facility]) Medical times Branch daily as needed for Pain (scale 4-6). gabapentin Yes [id number] 600mg Take 1 Univers 600 mg 6-14 tablet by ity of tablet 00:00: mouth [place] ([facility]) Medical times Branch daily. methocarbam Yes [id number] 750mg Take 1 Univers oL 750 mg 3-31 tablet by ity o f tablet 00:00: mouth [place] (three) Medical times Branch daily as needed for Pain (scale 4-6). methocarbam Yes [id number] 750mg Take 1 Univers oL 750 mg 3-31 tablet by ity o f tablet 00:00: mouth [place] ([facility]) Medical times Branch daily as needed for Pain (scale 4-6). gabapentin 2020-03 Yes 400mg Take 400 Un jon 400 mg 1-30 mg by ity of capsule 14:16: mouth 3 [place] ([facility]) Medical times Branch daily. meloxicam 2020-03 Yes 15mg Take 15 mg Un jon 15 mg 1-30 by mouth ity of tablet 14:16: daily. [address] HYDROCODONE 2020-03 Yes Take by Uni vers -ACETAMINOP 1-30 mouth. ity of HEN ORAL 14:16: [address] DICLOFENAC 2020-03 Yes Take by [facility] ers SODIUM ORAL 1-30 mouth. ity of 14:16: [address] amitriptyli 2020-03 Yes Take 1 Univ ers ne 150 mg 1-30 tablet ity of tablet 14:16: every day [place] [id number] by oral Medical route for Branch 30 days. gabapentin 2020-03 Yes 400mg Take 400 Un jon 400 mg 1-30 mg by ity of capsule 14:16: mouth 3 [place] [address] (three) Medical times Branch daily. meloxicam 2020-03 Yes 15mg Take 15 mg Un jon 15 mg 1-30 by mouth ity of tablet 14:16: daily. [address] HYDROCODONE 2020-03 Yes Take by Uni vers -ACETAMINOP 1-30 mouth. ity of HEN ORAL 14:16: [address] DICLOFENAC 2020-03 Yes Take by [facility] ers SODIUM ORAL 1-30 mouth. ity of 14:16: [address] amitriptyli 2020-03 Yes Take 1 Univ ers ne 150 mg 1-30 tablet ity of tablet 14:16: every day [place] [id number] by oral Medical route for Branch 30 days. methylPREDN 2020-03 Yes [id number] Take by Univers ISolone 1-30 mouth ity of (MEDROL, 00:00: SEE-INSTRU Kang as GIL,) 4 mg 00 CTIONS. Medica l tablets follow Branch package directions methylPREDN 2020-03 Yes [id number] Take by Univers ISolone 1-30 mouth ity of (MEDROL, 00:00: SEE-INSTRU [place] GIL,) 4 mg 00 CTIONS. Medica l tablets follow Branch package directions methylPREDN 2020-0 Yes [id number] 84mg Take 21 Univers ISolone 4- [id number] tablets by ity o f (MEDROL, 00:00: mouth [place] GIL,) 4 mg 00 SEE-INSTRU Med ical tablets CTIONS. Branch follow package directions methylPREDN 2020-0 Yes [id number] 84mg Take 21 Univers ISolone 4-03 [id number] tablets by ity o f (MEDROL, 00:00: mouth [place] GIL,) 4 mg 00 SEE-INSTRU Med ical tablets CTIONS. Branch follow package directions methylPREDN 2020-0 Yes [id number] 84mg Take 21 Univers ISolone 3- [id number] tablets by ity o f (MEDROL, 00:00: mouth [place] GIL,) 4 mg 00 SEE-INSTRU Med ical tablets CTIONS. Branch follow package directions methylPREDN 2020-0 Yes [id number] 84mg Take 21 Univers ISolone 3- [id number] tablets by ity o f (MEDROL, 00:00: mouth [place] GIL,) 4 mg 00 SEE-INSTRU Med ical tablets CTIONS. Branch follow package directions amitriptyli 2020-0 Yes Univer s ne 150 mg 2-26 ity of tablet 00:00: [place] [facility] Branch amitriptyli 2020-0 Yes Univer s ne 150 mg 2-26 ity of tablet 00:00: [place] [facility] LISINOPRIL- 2020-0 Yes 10mg Take 10 mg Univers HYDROCHLORO 2-24 by mouth. ity of THIAZIDE 15:41: [address] LISINOPRIL- 2019-0 Yes 10mg Take 10 mg Univers HYDROCHLORO 2-24 by mouth. ity of THIAZIDE 15:41: [address] busPIRone 5 2020-0 Yes TK 1 T PO U nivers mg tablet 1-24 BID ity of 00:00: [place] [facility] busPIRone 5 2019-0 Yes TK 1 T PO U nivers mg tablet 1-24 BID ity of 00:00: [place] [facility] clonazePAM 2018- Yes TK 1 T PO Un jon 1 mg tablet 2-04 TID ity of 00:00: [place] [facility] clonazePAM 2018- Yes TK 1 T PO Un jon 1 mg tablet 2-04 TID ity of 00:00: [place] [facility] Branch ergocalcife 2018- Yes Take 1 Univ ers rol, 1-05 capsule ity of vitamin d2, 00:00: every week [place] 1,250 mcg 00 by oral Medical (50,000 route for Branch unit) 28 days. capsule ergocalcife 2018- Yes Take 1 Univ ers rol, 1-05 capsule ity of vitamin d2, 00:00: every week [place] 1,250 mcg 00 by oral Medical (50,000 route for Branch unit) 28 days. capsule Vital Signs Vital Name Observation Time Observation Value Comments Source Systolic blood 2021-08-21 18:45:00 110 mm[Hg] [facility] Diastolic blood 2021-08-21 18:45:00 69 mm[Hg] [facility] Heart rate 2021-08-21 18:45:00 66 /min [facility] Body height 2021-08-21 18:45:00 182.9 cm [facility] Body weight 2021-08-21 18:45:00 119.296 kg [facility] BMI 2021-08-21 18:45:00 35.67 kg/m2 [facility] Oxygen saturation 2021-08-21 18:45:00 98 /min [facility] in Arterial blood [facility] anch by Pulse oximetry Procedures This patient has no known procedures. Encounters Start End Encounter Admission Attending Care Care Encounter Source Date/Time Date/Time Type Type Clinicians Facility Department ID 2021-11-06 2021-11-06 Outpatient R [facility] [id number] Univers 12:30:00 12:30:00 ity [facility] 2021-11-05 2021-11-05 Outpatient ASHLEY [facility]ARDEN [facility] [id number] Univers 11:45:00 11:45:00 [id number] ity [facility] 2021-11-05 2021-11-05 Outpatient ASHLEY DARDEN [facility] [id number] Univers 11:45:00 11:45:00 ity [facility] 2021-09-20 2021-09-20 Outpatient ASHLEY DARDEN [facility] [id number] Univers 09:00:00 09:00:00 [id number] ity [facility] 2021-09-20 2021-09-20 Outpatient ASHLEY DARDEN [facility] [id number] Univers 09:00:00 09:00:00 ity [facility] 2021-09-20 2021-09-20 Ashley Sadler NMBOYD [id number] Univers 00:00:00 00:00:00 HEALTH [id number] it y of CLEAR [id number] [facility] [id number] [place] [address] Branch OFFICE BUILDING 2021-08-21 2021-08-21 Office Wesly [facility] [id number] [facility] 13:30:00 14:11:08 Visit Nic ISAI [id number] ity of IALTY [id number] [facility] [place] [facility] [id number] [facility] AND [address] DIABETES CLINIC 2020-07-31 2020-07-31 Orders Doctor ANGELINA [id number] 00:00:00 00:00:00 Only Unassigned, ROSALIND [id number] [place] [facility] [id number] 2019-07-20 2019-07-20 Orders Doctor ANGELINA [id number] 00:00:00 00:00:00 Only Unassigned, ROSALIND [id number] [place] [facility] [id number] [id number] 2019-06-11 2019-06-11 Telemedici Jonathan [facility] [id number] 10:21:43 10:36:43 ne Visit Campos [facility] [id number] Surgical [id number] Specialti [phone] [address] [place] 2019-05-11 2019-05-11 Orders Doctor ALFARO [id number] 00:00:00 00:00:00 Only Unassigned, ROSALIND [id number] [place] [facility] [id number] 2019-05-10 2019-05-10 Office Jonathan [facility] [id number] 14:05:26 14:20:26 Visit [facility] [id number] Surgical [id number] Specialti [id number] es [address] [place] Results This patient has no known results.
--- NOTE | 2021-11-06 18:06 | RAD REPORT ---
EXAM DESCRIPTION: RAD - Humerus Right - 11/06/2021 5:58 pm CLINICAL HISTORY: Pain COMPARISON: No comparisons FINDINGS/IMPRESSION: No acute fracture. No malalignment. No significant focal degenerative changes.
--- NOTE | 2021-11-06 19:25 | RAD REPORT ---
EXAM DESCRIPTION: US - UPPER EXTREMITY VENOUS UNILATE - 11/06/2021 7:13 pm CLINICAL HISTORY: Pain COMPARISON: None. TECHNIQUE: Real-time sonographic evaluation of the right upper extremity deep venous system was perf ormed. FINDINGS: Normal compressibility, flow augmentation, phasic flow and spontaneous flow is identified in the right upper extremity deep venous system. No intraluminal filling defects seen. 5.8 cm by 1.8 cm x 1.1 cm fluid collection at the area of concern in the right arm. This is hypoechoi c and demonstrates increased through transmission. IMPRESSION: No DVT in the right upper extremity. Fluid collection in the right arm may represent a subacute hematoma but is nonspecific.
[2021-11-06] MEDS ORDERED: LIDOCAINE 1% W/EPI 1:100,000 MDV 50 ML VIAL ONE (20:33)
[2021-11-06] MEDS ORDERED: BUPIVACAINE 0.5% PF 10 ML VIAL ONE (20:35)
--- NOTE | 2021-11-06 20:43 | ER ---
Nurse's Notes [facility] Name: Mirta Olmos Age: 56 yrs Sex: Female : 1965 Arrival Date: 11/06/2021 Time: 17:14 Bed 10 Private MD: Diagnosis: Localized swelling, mass and lump, right upper limb Presentation: 11/06 17:41 Chief complaint: Patient states: right upper arm pain X 1 week, yellow bruising noted iw to upper arm , denies injury or falling. Coronavirus screen: At this time, the client does not indicate any symptoms associated with coronavirus-19. Ebola Screen: Patient negative for fever greater than or equal to 101.5 degrees Fahrenheit, and additional compatible Ebola Virus Disease symptoms Patient denies exposure to infectious person. Patient denies travel to an Ebola-affected area in the 21 days before illness onset. No symptoms or risks identified at this time. Initial Sepsis Screen: Does the patient meet any 2 criteria? No. Patient's initial sepsis screen is negative. Does the patient have a suspected source of infection? No. Patient's initial sepsis screen is negative. Risk Assessment: Do you want to hurt yourself or someone else? Patient reports no desire to harm self or others. Onset of symptoms was November 06, 2021. 17:41 Method Of Arrival: Ambulatory iw 17:41 Acuity: LESTER 4 iw Historical: - Allergies: 19:27 NKDA; as6 - Home Meds: 19:27 clonazepam 1 mg Oral TbDi 1 tab 3 times per day [Active]; gabapentin Oral [Active]; as6 lisinopril Oral once daily [Active]; Methadone Oral [Active]; - PSHx: 19:27 section; as6 - Immunization history:: Adult Immunizations unknown. - Social history:: Smoking status: Patient denies any tobacco usage or history of. Screenin:27 Abuse screen: Denies threats or abuse. Denies injuries from another. Nutritional as6 screening: No deficits noted. Tuberculosis screening: No symptoms or risk factors identified. Fall Risk None identified. Assessment: 19:27 General: Appears uncomfortable, Behavior is calm, cooperative. Pain: Complains of pain as6 in right arm. Respiratory: Respiratory effort is even, unlabored. Vital Signs: 17:44 BP 91 / 78; Pulse 61; Resp 16; Temp 98.2; Pulse Ox 97% on R/A; iw 19:36 BP 110 / 56; Pulse 61; Resp 18 S; Pulse Ox 94% on R/A; as6 ED Course: 17:14 Patient arrived in ED. rg4 17:18 Keny Kennedy PA is PHCP. cp 17:18 Palomo Cruz DO is Attending Physician. cp 17:41 Eliza Garcia RN is Primary Nurse. iw 17:42 Triage completed. iw 17:42 Arm band placed on. iw 18:01 XRAY Humerus RIGHT In Process Unspecified. EDMS 19:11 Attending Physician role handed off by Palomo Cruz DO emiliana 19:11 Keny Cardenas MD is Attending Physician. emiliana 19:14 Patient's name was called from ER lobby. No response. Unable to locate patient. Will as6 disposition as left without being seen by a provider. 19:15 UPPER EXTREMITY VENOUS UNILATE In Process Unspecified. EDMS 19:27 Bed in low position. Call light in reach. as6 19:37 Primary Nurse role handed off by Eliza Garcia RN as6 19:37 Brandon Vazquez RN is Primary Nurse. as6 20:40 Jared Craig MD is Referral Physician. cp 20:40 Referral Physician role handed off by Jared Craig MD cp 20:40 Jared Craig MD is Referral Physician. cp 20:50 No provider procedures requiring assistance completed. Patient did not have IV access as6 during this emergency room visit. Administered Medications: 20:50 Drug: Hydrocodone-Acetaminophen (7.5 mg-325 mg) 1 tabs Route: PO; as6 20:51 Follow up: Response: No adverse reaction as6 20:50 Drug: Ibuprofen 800 mg Route: PO; as6 20:51 Follow up: Response: No adverse reaction as6 Medication: 20:51 VIS not applicable for this client. as6 Outcome: 20:42 Discharge ordered by . cp 20:51 Discharged to home ambulatory, with family. as6 20:51 Condition: stable 20:51 Discharge instructions given to patient, Instructed on discharge instructions, follow up and referral plans. medication usage, Demonstrated understanding of instructions, follow-up care, medications, Prescriptions given X 3. 20:51 Patient left the ED. as6 Signatures: Dispatcher [employer] Keny Cancino MD MD cha Williams, Irene, JENELLE RN Keny Austin PA PA cp Garcia, Rubi rg4 Brandon Vazquez, JENELLE RN as6
--- NOTE | 2021-11-06 20:43 | EDPHYS ---
Physician Documentation [facility] Name: Mirta Olmos Age: 56 yrs Sex: Female : 1965 Arrival Date: 11/06/2021 Time: 17:14 Bed 10 Private MD: SHERRON Physician Keny Cardenas HPI: 11/06 18:15 This 56 yrs old Female presents to ER via Ambulatory with complaints of Arm Pain. cp 18:15 The patient or guardian complains of pain, that is acute, swelling, tenderness. The cp complaints affect the right bicep. Context: resulted from unknown cause. Onset: The symptoms/episode began/occurred 1 week(s) ago. Treatment prior to arrival includes: no previous treatment. Associated signs and symptoms: The patient has no apparent associated signs or symptoms. Patient denies injury to area. Reports the only thought is that she was throwing a ball around with her son prior to noticing pain and swelling. Historical: - Allergies: 19:27 NKDA; as6 - Home Meds: 19:27 clonazepam 1 mg Oral TbDi 1 tab 3 times per day [Active]; gabapentin Oral [Active]; as6 lisinopril Oral once daily [Active]; Methadone Oral [Active]; - PSHx: 19:27 section; as6 - Immunization history:: Adult Immunizations unknown. - Social history:: Smoking status: Patient denies any tobacco usage or history of. ROS: 18:20 Constitutional: Negative for body aches, chills, fever, poor PO intake. cp 18:20 Eyes: Negative for injury, pain, redness, and discharge. cp 18:20 ENT: Negative for drainage from ear(s), ear pain, sore throat, difficulty swallowing, difficulty handling secretions. 18:20 Cardiovascular: Negative for chest pain, palpitations. 18:20 Respiratory: Negative for cough, shortness of breath, wheezing. 18:20 Abdomen/GI: Negative for abdominal pain, nausea, vomiting, and diarrhea. 18:20 Back: Negative for pain at rest, pain with movement. 18:20 MS/extremity: Positive for pain, swelling, tenderness, of the anterior medial aspect of right upper arm, Negative for injury or acute deformity, decreased range of motion, paresthesias. 18:20 Skin: Positive for ecchymosis, of the right upper arm, Negative for rash. 18:20 Neuro: Negative for altered mental status, numbness, tingling, weakness. 18:20 All other systems are negative. Exam: 18:25 Constitutional: The patient appears in no acute distress, alert, awake, cp non-diaphoretic, non-toxic, well developed, well nourished. 18:25 Head/Face: Normocephalic, atraumatic. cp 18:25 Eyes: Periorbital structures: appear normal, Conjunctiva: normal, no exudate, no injection, Sclera: no appreciated abnormality, Lids and lashes: appear normal, bilaterally. 18:25 ENT: External ear(s): are unremarkable, Nose: is normal, Mouth: Lips: moist, Oral mucosa: moist, Posterior pharynx: is normal, airway is patent, no erythema, no exudate. 18:25 Neck: ROM/movement: is normal, is supple, without pain, no range of motions limitations. 18:25 Chest/axilla: Inspection: normal. 18:25 Cardiovascular: Rate: normal, Rhythm: regular, Pulses: Pulses are 2+ in right radial artery. 18:25 Respiratory: the patient does not display signs of respiratory distress, Respirations: normal, no use of accessory muscles, no retractions, labored breathing, is not present, Breath sounds: are clear throughout, no decreased breath sounds, no stridor, no wheezing. 18:25 Abdomen/GI: Inspection: abdomen appears normal. 18:25 Musculoskeletal/extremity: Extremities: grossly normal except: noted in the anterior medial aspect right upper arm: ecchymosis, pain, swelling, tenderness, There is no evidence of decreased ROM, deformity, erythema, ROM: full active range of motion, in the right arm, the right arm Sensation intact. 18:25 Neuro: Orientation: to person, place \T\ time. Mentation: is normal. Vital Signs: 17:44 BP 91 / 78; Pulse 61; Resp 16; Temp 98.2; Pulse Ox 97% on R/A; iw 19:36 BP 110 / 56; Pulse 61; Resp 18 S; Pulse Ox 94% on R/A; as6 MDM: 19:11 Patient medically screened. emiliana 20:42 Data reviewed: vital signs, nurses notes, radiologic studies, plain films, ultrasound. cp 20:42 Differential diagnosis: contusion, hematoma, abscess, cellulitis, biceps tendon cp rupture. Test interpretation: by ED physician or midlevel provider: plain radiologic studies. Counseling: I had a detailed discussion with the patient and/or guardian regarding: the historical points, exam findings, and any diagnostic results supporting the discharge/admit diagnosis, radiology results, the need for outpatient follow up, a general surgeon, to return to the emergency department if symptoms worsen or persist or if there are any questions or concerns that arise at home. 11/06 17:29 Order name: XRAY Humerus RIGHT; Complete Time: 19:05 cp 11/06 19:05 Interpretation: Report reviewed. cp 11/06 18:10 Order name: UPPER EXTREMITY VENOUS UNILATE; Complete Time: 19:28 EDMS 11/06 19:28 Interpretation: Report reviewed. cp 11/06 19:29 Order name: Blood Pressure Recheck; Complete Time: 19:37 cp Administered Medications: 20:50 Drug: Hydrocodone-Acetaminophen (7.5 mg-325 mg) 1 tabs Route: PO; as6 20:51 Follow up: Response: No adverse reaction as6 20:50 Drug: Ibuprofen 800 mg Route: PO; as6 20:51 Follow up: Response: No adverse reaction as6 Disposition Summary: 11/06/21 20:42 Discharge Ordered Location: Home cp Problem: new cp Symptoms: have improved cp Condition: Stable cp Diagnosis - Localized swelling, mass and lump, right upper limb cp Followup: cp - With: Jared Craig MD - When: 48 Hours - Reason: Recheck today's complaints Followup: cp - With: Jared Craig MD - When: 1 - 2 days - Reason: Recheck today's complaints Discharge Instructions: - Discharge Summary Sheet cp Forms: - Medication Reconciliation Form cp - Thank You Letter cp - Antibiotic Education cp - Prescription Opioid Use cp Prescriptions: - Clindamycin HCl 300 mg Oral Capsule - take 1 capsule by ORAL route every 6 hours for 10 days; 40 capsule; Refills: 0, cp Product Selection Permitted - Ibuprofen 800 mg Oral Tablet - take 1 tablet by ORAL route every 8 hours As needed take with food; 30 tablet; cp Refills: 0, Product Selection Permitted - Tylenol-Codeine #3 300 mg-30 mg Oral - take 2 tablet by ORAL route every 8-10 hours; 12 tablet; Refills: 0, Product cp Selection Permitted Signatures: Dispatcher [employer] EDMS Keny Cardenas MD MD cha Page, Corey, PA PA cp Brandon Vazquez RN RN as6 Corrections: (The following items were deleted from the chart) 18:10 17:29 Extremity Venous Uni [email or web address] ordered. EDMS EDMS
[2021-11-06] MEDS ORDERED: IBUPROFEN 400 MG TAB ONE ×2 (20:54→20:56)
[2021-11-06] MEDS ORDERED: HYDROCODONE/APAP 7.5/325 MG TAB ONE (20:54)
[2021-11-06 21:12] VITALS: TEMP 98.2
[2021-11-06 21:14] VITALS: BP 110/56; O2SAT 94
== END 2021-11-06 20:51 | disposition home or self-care (01) ==
LOC: ER 17:11
DX: R22.31 Localized swelling, mass and lump, right upper limb (principal)
CPT/HCPCS: 93971

== ENCOUNTER 2022-12-13 07:04 | Day surgery (SDC) | payer OTHER ==
--- NOTE | 2022-12-09 16:46 | EKG ---
Test Date: 2022-12-09 Test Time: 12:27:53 Photographic Spotter: KIKI MEASUREMENT RESULTS: Intervals: Rate: 79 NV: 154 QRSD: 90 QT: 396 QTc: 454 [place]: P: 30 NV: 154 QRS: 73 T: 47 INTERPRETIVE STATEMENTS: Normal sinus rhythm RSR' or QR pattern in V1 suggests right ventricular conduction delay Borderline ECG Compared to ECG 10/03/2020 10:21:08 No significant changes Electronically Signed On 12-09-22 16:45:44 CDT by Aquilino Mendoza
[2022-12-13] MEDS: Ringers Lactate 1,000 ML IV ONE ×2 (07:40→07:51)
[2022-12-13] MEDS ORDERED: propofoL 200 MG/20 ML VIAL IV ONE ×2 (07:48→08:16)
[2022-12-13] MEDS ORDERED: LIDOCAINE 1% MPF 5 ML VIAL ONE (07:48)
[2022-12-13 09:04] VITALS: BP 141/74; TEMP 97.1; O2SAT 100
== END 2022-12-13 08:53 | disposition home or self-care (01) ==
LOC: OR 07:04
PROVIDERS: ATTEND Surgery
PROC: 0DBH8ZX Excision of Cecum, Via Natural or Artificial Opening Endoscopic, Diagnostic (ICD-10-PCS; principal; 2022-12-13 08:00)
DX: Z12.11 Encounter for screening for malignant neoplasm of colon (principal); K64.8 Other hemorrhoids; R63.4 Abnormal weight loss; F41.9 Anxiety disorder, unspecified; F32.A Depression, unspecified; R68.81 Early satiety
CPT/HCPCS: 93005; 88305; 45380; J2704 ×2; J2001; J7120